=== PATIENT | female | born 1950 | race Caucasian/White ===

== ENCOUNTER 2020-11-09 11:15 | Inpatient (IN) | payer MEDICARE ==
[2020-11-09 12:27] LABS: Basophils # (A) 0.1 k/uL (0-0.2); Basophils % (A) 0 %; Eosinophils # (A) 0.1 k/uL (0-0.7); Eosinophils % (A) 0 %; HCT 39.1 % (34.0-46.0); HGB 12.7 gm/dL (11.4-16.0); Lymphocytes # (A) 1.2 k/uL (1.0-4.8); Lymphocytes % (A) 7 %; MCH 29.9 pg (25.0-35.0); MCHC 32.5 g/dL (31.0-37.0); Mean Platelet Volume 9.2; Monocytes % (A) 6 %; Neutrophils % (A) 84 %; Platelet Count 370 k/uL (150-450); RBC 4.25 m/uL (3.80-5.40); RDW 15.2 % (11.5-15.5); WBC 15.6 k/uL (3.8-10.6)
--- NOTE | 2020-11-09 12:40 | XR ---
EXAMINATION TYPE: XR chest 2V DATE OF EXAM: 11/09/2020 COMPARISON: NONE HISTORY: Extremity weakness and shortness of breath TECHNIQUE: Frontal and lateral views of the chest are obtained. FINDINGS: Mild cardiomegaly is present. Scattered calcified nodules and/or benign granulomas right u pper lung extending towards the hilum. On lateral view there is best seen retrocardiac opacity presum ed left lower lobe atelectasis and/or infiltrate. No pleural effusion or pneumothorax seen bilateral ly. The osseous structures are intact. IMPRESSION: Cardiomegaly with retrocardiac acute infiltrate and/or atelectasis suspected. Correlate clinically.
[2020-11-09 12:41] LABS: Albumin 3.6 g/dL (3.5-5.0); Calcium 9.3 mg/dL (8.4-10.2); Magnesium 1.8 mg/dL (1.6-2.3); Potassium 4.5 mmol/L (3.5-5.1); Total Bilirubin 1.4 mg/dL (0.2-1.3); Total Protein 7.2 g/dL (6.3-8.2)
--- NOTE | 2020-11-09 12:42 | ED ---
General Adult HPI - General Chief complaint: Extremity Problem,Nontraumatic Stated complaint: Weakness Time Seen by Provider: 11/09/20 11:56 Source: patient, RN notes reviewed, old records reviewed Mode of arrival: EMS - History of Present Illness Initial comments: 70-year-old female who presents for evaluation of bilateral leg swelling and pain. Patient has been unable to ambulate secondary to pain and swelling. She does have a history of chronic kidney disease and fluid retention. She had a dosage change to her medication in the late spring. She has no cough, no fever, no chest pain or dyspnea. No abdominal pain nausea vomiting. She states she has had a reduction in urine output recently. - Related Data Home Medications Medication Instructions Recorded Confirmed Atorvastatin [Lipitor] 40 mg PO HS 05/31/14 11/09/20 Glimepiride [Amaryl] 2 mg PO BID 05/31/14 11/09/20 Insulin Glargine [Lantus] 30 unit SQ DAILY 05/31/14 11/09/20 Aspirin EC [Ecotrin Low Dose] 81 mg PO DAILY 11/09/20 11/09/20 Cholecalciferol [Vitamin D3 (25 50 mcg PO DAILY 11/09/20 11/09/20 Mcg = 1000 Iu)] Cinnamon Bark [Cinnamon] 1,000 mg PO DAILY 11/09/20 11/09/20 Furosemide [Lasix] 20 mg PO DAILY 11/09/20 11/09/20 Levothyroxine Sodium [Synthroid] 125 mcg PO DAILY 11/09/20 11/09/20 Lisinopril-Hctz 20-25 mg 1 tab PO DAILY 11/09/20 11/09/20 [Zestoretic 20-25] Metoprolol Succinate [Toprol XL] 50 mg PO DAILY 11/09/20 11/09/20 Potassium Chloride [Klor-Con M15] 15 meq PO DAILY 11/09/20 11/09/20 Semaglutide [Ozempic] 0.25 mg SQ TU 11/09/20 11/09/20 Ubidecarenone [Co Q-10] 200 mg PO DAILY 11/09/20 11/09/20 metFORMIN HCL [Glucophage] 500 mg PO BID 11/09/20 11/09/20 Allergies Allergy/AdvReac Type Severity Reaction Status Date / Time No Known Allergies Allergy Verified 11/09/20 13:17 Review of Systems ROS Statement: Those systems with pertinent positive or pertinent negative responses have been documented in the HPI. ROS Other: All systems not noted in ROS Statement are negative. Past Medical History Past Medical History: Cancer, COPD, Diabetes Mellitus, Hypertension Additional Past Medical History / Comment(s): uterine History of Any Multi-Drug Resistant Organisms: None Reported Past Surgical History: Hysterectomy Past Psychological History: No Psychological Hx Reported Past Alcohol Use History: None Reported Past Drug Use History: None Reported General Exam General appearance: alert, in no apparent distress Head exam: Present: atraumatic, normocephalic Eye exam: Present: normal appearance, PERRL Neck exam: Present: normal inspection. Absent: tenderness Respiratory exam: Present: normal lung sounds bilaterally. Absent: respiratory distress, wheezes, rales Cardiovascular Exam: Present: regular rate, normal rhythm GI/Abdominal exam: Present: soft. Absent: distended, tenderness Extremities exam: Present: pedal edema Neurological exam: Present: alert, oriented X3, CN II-XII intact. Absent: motor sensory deficit Psychiatric exam: Present: normal affect, normal mood Skin exam: Present: warm, dry, intact Course Vital Signs 11/09/20 11/09/20 11:29 13:56 Temperature 98.7 F Pulse Rate 75 70 Respiratory 16 18 Rate Blood Pressure 117/69 139/53 O2 Sat by Pulse 98 99 Oximetry EKG Findings - EKG Comments: EKG Findings:: EKG: Normal sinus rhythm rate of 75, AL interval 140, QRS dur ation 78, QTC 435, T-wave inversion in the precordial leads, no ST segment elevation. Medical Decision Making - Medical Decision Making 70-year-old female presenting with lower extremity edema, pain, unable to ambulate. Patient is afebrile with stable vitals. Workup is initiated, she has a EKG showing sinus rhythm without ST segment elevation or ischemic change. Chest x-ray shows concern for atelectasis versus pneumonia. She has an elevated white blood cell count 15.6. Stable creatinine, elevated blood sugar. Her troponin and BNP are normal. I suspect this is just peripheral dependent edema rather than heart failure. Given the pneumonia with elevated white blood cell count she is initiated on antibiotics. She will be admitted for further evaluation and treatment. - Lab Data Result diagrams: 11/09/20 11:26 11/09/20 11:26 Lab Results 11/09/20 11/09/20 11/09/20 Range/Units 11:26 11:26 11:26 WBC 15.6 H (3.8-10.6) k/uL RBC 4.25 (3.80-5.40) m/uL Hgb 12.7 (11.4-16.0) gm/dL Hct 39.1 (34.0-46.0) % MCV 92.0 (80.0-100.0) fL MCH 29.9 (25.0-35.0) pg MCHC 32.5 (31.0-37.0) g/dL RDW 15.2 (11.5-15.5) % Plt Count 370 (150-450) k/uL MPV 9.2 Neutrophils % 84 % Lymphocytes % 7 % Monocytes % 6 % Eosinophils % 0 % Basophils % 0 % Neutrophils # 13.0 H (1.3-7.7) k/uL Lymphocytes # 1.2 (1.0-4.8) k/uL Monocytes # 1.0 (0-1.0) k/uL Eosinophils # 0.1 (0-0.7) k/uL Basophils # 0.1 (0-0.2) k/uL PT 10.0 (9.0-12.0) sec INR 0.9 (<1.2) APTT 22.6 (22.0-30.0) sec Sodium 137 (137-145) mmol/L Potassium 4.5 (3.5-5.1) mmol/L Chloride 100 (98-107) mmol/L Carbon Dioxide 25 (22-30) mmol/L Anion Gap 12 mmol/L BUN 24 H (7-17) mg/dL Creatinine 1.29 H (0.52-1.04) mg/dL Est GFR (CKD-EPI)AfAm 48 (>60 ml/min/1.73 sqM) Est GFR (CKD-EPI)NonAf 42 (>60 ml/min/1.73 sqM) Glucose 252 H (74-99) mg/dL Calcium 9.3 (8.4-10.2) mg/dL Magnesium 1.8 (1.6-2.3) mg/dL Total Bilirubin 1.4 H (0.2-1.3) mg/dL AST 34 (14-36) U/L ALT 21 (4-34) U/L Alkaline Phosphatase 112 (38-126) U/L Troponin I (0.000-0.034) ng/mL NT-Pro-B Natriuret Pep pg/mL Total Protein 7.2 (6.3-8.2) g/dL Albumin 3.6 (3.5-5.0) g/dL 11/09/20 11/09/20 Range/Units 11:26 11:26 WBC (3.8-10.6) k/uL RBC (3.80-5.40) m/uL Hgb (11.4-16.0) gm/dL Hct (34.0-46.0) % MCV (80.0-100.0) fL MCH (25.0-35.0) pg MCHC (31.0-37.0) g/dL RDW (11.5-15.5) % Plt Count (150-450) k/uL MPV Neutrophils % % Lymphocytes % % Monocytes % % Eosinophils % % Basophils % % Neutrophils # (1.3-7.7) k/uL Lymphocytes # (1.0-4.8) k/uL Monocytes # (0-1.0) k/uL Eosinophils # (0-0.7) k/uL Basophils # (0-0.2) k/uL PT (9.0-12.0) sec INR (<1.2) APTT (22.0-30.0) sec Sodium (137-145) mmol/L Potassium (3.5-5.1) mmol/L Chloride (98-107) mmol/L Carbon Dioxide (22-30) mmol/L Anion Gap mmol/L BUN (7-17) mg/dL Creatinine (0.52-1.04) mg/dL Est GFR (CKD-EPI)AfAm (>60 ml/min/1.73 sqM) Est GFR (CKD-EPI)NonAf (>60 ml/min/1.73 sqM) Glucose (74-99) mg/dL Calcium (8.4-10.2) mg/dL Magnesium (1.6-2.3) mg/dL Total Bilirubin (0.2-1.3) mg/dL AST (14-36) U/L ALT (4-34) U/L Alkaline Phosphatase (38-126) U/L Troponin I <0.012 (0.000-0.034) ng/mL NT-Pro-B Natriuret Pep 548 pg/mL Total Protein (6.3-8.2) g/dL Albumin (3.5-5.0) g/dL Disposition Clinical Impression: Peripheral edema, Pneumonia, Leukocytosis Disposition: ADMITTED IP TO THIS HOSP Condition: Stable Is patient prescribed a controlled substance at d/c from ED?: No Referrals: Cinthia Valverde MD [Primary Care Provider] - 1-2 days Time of Disposition: 14:18 Decision to Admit Reason: Admit from EC Decision Date: 11/09/20 Decision Time: 14:18
[2020-11-09 12:53] LABS: INR 0.9 (<1.2); Partial Thromboplastin Time 22.6 sec (22.0-30.0)
[2020-11-09] MEDS ORDERED: cefTRIAXone IN SWFI 1,000 MG/10 ML SYRINGE IVP STA (13:45)
[2020-11-09] MEDS ORDERED: FUROSEMIDE 10 MG/ML 4 ML VIAL IV STA (13:45)
[2020-11-09] MEDS ORDERED: AZITHROMYCIN 500 MG in SODIUM CHLORIDE 0.9% 250 ML IVPB STA (13:45)
[2020-11-09] MEDS ORDERED: NALOXONE 0.4 MG/ML 1 ML VIAL IV PRN (14:14)
[2020-11-09] MEDS ORDERED: ACETAMINOPHEN TAB 325 MG TAB PO PRN (14:14)
[2020-11-09] MEDS ORDERED: NON FORMULARY DRUG (Semaglutide [Ozempic] 0.25 MG/0.2 ML Pen.Injctr) SQ SCH (17:45)
--- NOTE | 2020-11-09 19:21 | XR ---
EXAMINATION TYPE: XR ankle complete bilateral DATE OF EXAM: 11/09/2020 COMPARISON: NONE HISTORY: Ankle pain TECHNIQUE: 3 views each ankle FINDINGS: There is bilateral soft tissue swelling around the ankle joints. Left and right ankle morti se appear intact. There is bilateral plantar and Achilles calcaneal spur formation. There is no evide nce of a fracture. Joint spaces are fairly normal. IMPRESSION: Soft tissue swelling. Bilateral calcaneal spurring. No fracture seen. No sign of inflamma tory arthritis. No erosions seen.
[2020-11-09] MEDS: COLCHICINE 0.6 MG EACH PO SCH (21:54)
[2020-11-09] MEDS: ATORVASTATIN 40 MG TAB PO SCH (21:55)
[2020-11-09] MEDS: metFORMIN 500 MG TAB PO SCH (21:56)
[2020-11-09] MEDS: GLIMEPIRIDE 2 MG TAB PO SCH (22:20)
[2020-11-10] MEDS: metFORMIN 500 MG TAB PO SCH ×2 (06:09→17:31)
[2020-11-10] MEDS: LEVOTHYROXINE 125 MCG TAB PO SCH (06:09)
[2020-11-10] MEDS: METOPROLOL SUCCINATE (ER) 50 MG TAB.ER.24H PO SCH (08:48)
[2020-11-10] MEDS: lisinopriL 20 MG TAB PO SCH (08:48)
[2020-11-10] MEDS: COLCHICINE 0.6 MG EACH PO SCH (08:48)
[2020-11-10] MEDS: FUROSEMIDE 20 MG TAB PO SCH (08:48)
[2020-11-10] MEDS: ASPIRIN 81 MG PO SCH (08:48)
[2020-11-10] MEDS: CHOLECALCIFEROL 25 MCG (1000 IU) TABLET PO SCH (08:48)
[2020-11-10] MEDS: GLIMEPIRIDE 2 MG TAB PO SCH ×2 (08:48→21:26)
[2020-11-10] MEDS: INSULIN DETEMIR (LEVEMIR) 100 UNIT/ML SYR SQ SCH (08:49)
[2020-11-10] MEDS: POTASSIUM CHLORIDE ER 10 MEQ TAB.ER.PRT PO SCH (08:49)
[2020-11-10] MEDS ORDERED: LISINOPRIL-HCTZ 20-25 MG 1 EACH TAB PO SCH (09:00)
[2020-11-10 11:48] LABS: Basophils # (A) 0.08 X 10*3/uL (0.00-0.10); Basophils % (A) 0.7 %; Eosinophils # (A) 0.17 X 10*3/uL (0.04-0.35); Eosinophils % (A) 1.4 %; HCT 37.2 % (37.2-46.3); HGB 11.5 g/dL (12.0-15.0); Lymphocytes # (A) 1.72 X 10*3/uL (0.90-5.00); MCH 28.5 pg (27.0-32.0); MCHC 30.9 g/dL (32.0-37.0); MCV 92.1 fL (80.0-97.0); Mean Platelet Volume 11.2 fL (9.5-12.2); Monocytes # (A) 1.09 X 10*3/uL (0.20-1.00); Monocytes % (A) 8.9 %; Neutrophils # (A) 9.18 X 10*3/uL (1.80-7.70); Neutrophils % (A) 74.5 %; Platelet Count 373 X 10*3/uL (140-440); RBC 4.04 X 10*6/uL (4.10-5.20); RDW 15.9 % (11.5-14.5)
[2020-11-10 12:01] LABS: African American GFR (CKD) 37.2 (60.0-200.0); Anion Gap 13.2 mmol/L (4.00-12.00); BUN/Creat Ratio 18.13 Ratio (12.00-20.00); Calcium 9.1 mg/dL (8.7-10.3); Carbon Dioxide 25.8 mmol/L (21.6-31.8); Non-African American GFR(CKD) 32.1 (60.0-200.0); Potassium 4.1 mmol/L (3.5-5.5)
[2020-11-10 12:30] LABS: Appearance,Urine Cloudy (Clear); Bacteria,Urine Few /hpf; Bilirubin,Urine Negative (Negative); Blood,Urine Small (Negative); Color,Urine Yellow; Glucose,Urine (UA) Negative (Negative); Hyaline Casts,Urine 5 /lpf (0-2); Ketones,Urine Negative (Negative); Leukocyte Esterase,Urine Large (Negative); Mucus,Urine Rare /hpf; Nitrite,Urine Negative (Negative); PH, Urine 5.5 (5.0-8.0); Protein,Urine 1+ (Negative); RBC,Urine 10 /hpf (0-5); Specific Gravity,Urine 1.019 (1.001-1.035); Squamous Epithelial Cell,Urine 3 /hpf (0-4); Urobilinogen,Urine <2.0 mg/dL (<2.0); WBC,Urine 142 /hpf (0-5)
[2020-11-10] MEDS: SODIUM CHLORIDE 0.9% 1,000 ML IV SCH ×2 (13:39→21:27)
[2020-11-10] MEDS ORDERED: AZITHROMYCIN 500 MG in SODIUM CHLORIDE 0.9% 250 ML IVPB SCH (14:00)
--- NOTE | 2020-11-10 16:40 | P.HPIM ---
History of Present Illness H&P Date: 11/09/20 Chief Complaint: Difficulties ambulating if ambulating, ankle pain Is a 70-year-old pleasant female, well-known to my practice, with known history of diabetes mellitus type 2, leg edema, CK D disease, has unilateral kidney, was admitted in the emergency room secondary to difficulties ambulating. Patient anxious that her leg is stiff, patient denies any trauma no falls, no new medication changes from our clinic, no history of DVT or PE in the past. Patient has leg edema, she was noted to have no claudication, no cyanosis. She has a rash in the anterior tibial region, which is chronic and has not changed. In the emergency room, she was some leukocytosis, however chest x-ray noted to have some infiltrate, however patient does not have a cough no nausea no vomiting, no dyspepsia, no aspiration. Patient has foul-smelling urine, for which we have requested a urinalysis for this, urinalysis or culture pending. Patient is on IV Rocephin, and Zithromax for empiric treatment, this needs to be decided Review of Systems Constitutional: Reports as per HPI, Reports weakness, Denies anorexia, Denies chills, Denies chronic headaches, Denies chronic pain, Denies daytime sleepiness, Denies fatigue, Denies fever, Denies lethargy, Denies malaise, Denies night sweats, Denies poor appetite, Denies sweats, Denies weight gain, De nies weight loss Ears, nose, mouth and throat: Denies headache, Denies nasal congestion, Denies vertigo Cardiovascular: Reports as per HPI, Reports chest pain, Reports syncope Respiratory: Reports as per HPI, Denies cough, Denies cough with sputum, Denies dyspnea, Denies excessive sputum, Denies home oxygen, Denies pain on inspiration Gastrointestinal: Reports as per HPI, Denies bloating, Denies constipation, Denies diarrhea, Denies dyspepsia, Denies indigestion Genitourinary: Reports as per HPI Menstruation: Reports as per HPI Musculoskeletal: Reports as per HPI, Reports frequent falls, Reports gait dysfunction, Reports limitation of motion, Reports muscle weakness, Denies neck pain Integumentary: Reports as per HPI Neurological: Reports as per HPI Psychiatric: Reports as per HPI Endocrine: Reports as per HPI Hematologic/Lymphatic: Reports as per HPI Allergic/Immunologic: Reports as per HPI Past Medical History Past Medical History: Cancer, COPD, Diabetes Mellitus, Hypertension Additional Past Medical History / Comment(s): uterine History of Any Multi-Drug Resistant Organisms: None Reported Past Surgical History: Hysterectomy Past Psychological History: No Psychological Hx Reported Past Alcohol Use History: None Reported Past Drug Use History: None Reported - Past Family History Father Family Medical History: No Reported History Medications and Allergies Home Medications Medication Instructions Recorded Confirmed Type Atorvastatin [Lipitor] 40 mg PO HS 05/31/14 11/09/20 History Glimepiride [Amaryl] 2 mg PO BID 05/31/14 11/09/20 History Insulin Glargine [Lantus] 30 unit SQ DAILY 05/31/14 11/09/20 History Aspirin EC [Ecotrin Low Dose] 81 mg PO DAILY 11/09/20 11/09/20 History Cholecalciferol [Vitamin D3 (25 50 mcg PO DAILY 11/09/20 11/09/20 History Mcg = 1000 Iu)] Cinnamon Bark [Cinnamon] 1,000 mg PO DAILY 11/09/20 11/09/20 History Furosemide [Lasix] 20 mg PO DAILY 11/09/20 11/09/20 History Levothyroxine Sodium [Synthroid] 125 mcg PO DAILY 11/09/20 11/09/20 History Lisinopril-Hctz 20-25 mg 1 tab PO DAILY 11/09/20 11/09/20 History [Zestoretic 20-25] Metoprolol Succinate [Toprol XL] 50 mg PO DAILY 11/09/20 11/09/20 History Potassium Chloride [Klor-Con M15] 15 meq PO DAILY 11/09/20 11/09/20 History Semaglutide [Ozempic] 0.25 mg SQ TU 11/09/20 11/09/20 History Ubidecarenone [Co Q-10] 200 mg PO DAILY 11/09/20 11/09/20 History metFORMIN HCL [Glucophage] 500 mg PO BID 11/09/20 11/09/20 History Allergies Allergy/AdvReac Type Severity Reaction Status Date / Time No Known Allergies Allergy Verified 11/09/20 13:17 Physical Exam Vitals: Vital Signs Temp Pulse Resp BP Pulse Ox 11/09/20 13:56 70 18 139/53 99 11/09/20 11:29 98.7 F 75 16 117/69 98 Intake and Output 11/09/20 11/09/20 11/09/20 06:59 14:59 22:59 Other: Weight 125.645 kg - Constitutional General appearance: cooperative, no acute distress, obese - EENT Eyes: EOMI, PERRLA ENT: NA/AT, normal oropharynx - Respiratory Respiratory: bilateral: CTA, negative: diminished, dullness - Cardiovascular Rhythm: regular Heart sounds: normal: S1, S2 Abnormal Heart Sounds: no systolic murmur, no diastolic murmur, no rub, no S3 Gallop, no S4 Gallop, no click, no other - Gastrointestinal General gastrointestinal: normal bowel sounds, soft - Integumentary Integumentary: decreased turgor, normal - Neurologic Neurologic: CNII-XII intact - Musculoskeletal Musculoskeletal: generalized weakness, strength equal bilaterally - Psychiatric Psychiatric: A&O x's 3, appropriate affect Results CBC & Chem 7: 11/10/20 08:01 11/10/20 08:01 Labs: Abnormal Lab Results - Last 24 Hours (Table) 11/09/20 11/09/20 Range/Units 11:26 11:26 WBC 15.6 H (3.8-10.6) k/uL Neutrophils # 13.0 H (1.3-7.7) k/uL BUN 24 H (7-17) mg/dL Creatinine 1.29 H (0.52-1.04) mg/dL Glucose 252 H (74-99) mg/dL Total Bilirubin 1.4 H (0.2-1.3) mg/dL Assessment and Plan Plan: 1. Sepsis, primary source unknown, check for UA, patient has foul-smelling urine, and weakness. Patient would start start empiric on antibiotic, Rocephin and Zithromax secondary to infiltrate the skin and chest x-ray, however patient's asymptomatic to this. Blood cultures has been sent 1. Difficulty of ambulating bilateral ankles, we would evaluate with gouty arthropathy, other crystal deposits, start on colchicine 0.6 mg daily, unable to do NSAID at this time secondary to unilateral kidney, and elevation of creatinine. Patient would need x-rays of the ankle, there is no trauma involved at this time, start hydrochlorothiazide 3. Hypertension, we will change lisinopril HCTZ to lisinopril 20 mg daily, continue Lasix 20 mg daily 4. Diabetes mellitus type 2, on glimepiride 2 mg twice a day, Lantus 30 mg daily 5. Hyperlipidemia with Lipitor 40 mg daily hypothyroidism, levothyroxine 125 g daily 6 CK D stage III, creatinine of 1.29 GFR 48, unilateral kidney present only, patient will be monitored closely, and no nephrotoxin, avoid hypotension 7. GI prophylaxis and DVT prophylaxis
--- NOTE | 2020-11-10 16:43 | P.PN ---
Subjective Progress Note Date: 11/10/20 Is a 70-year-old pleasant female, well-known to my practice, with known history of diabetes mellitus type 2, leg edema, CK D disease, has unilateral kidney, was admitted in the emergency room secondary to difficulties ambulating. Patient anxious that her leg is stiff, patient denies any trauma no falls, no new medication changes from our clinic, no history of DVT or PE in the past. Patient has leg edema, she was noted to have no claudication, no cyanosis. She has a rash in the anterior tibial region, which is chronic and has not changed. In the emergency room, she was some leukocytosis, however chest x-ray noted to have some infiltrate, however patient does not have a cough no nausea no vomiti ng, no dyspepsia, no aspiration. Patient has foul-smelling urine, for which we have requested a urinalysis for this, urinalysis or culture pending. Patient is on IV Rocephin, and Zithromax for empiric treatment, this needs to be decided 11/10: Patient has ambulated to the bathroom, patient's was seen by PT OT, has urinary tract infection based on urinalysis, with pyuria, and foul-smelling odor , has dark urine today, IV fluids started, at 75-100 mL an hour, creatinine is slightly worse today, patient is on Rocephin urine tract infection as well as Zithromax, we'll going to discontinue Zithromax at this time, lack of clinical symptoms on pneumonia. Blood cultures are currently pending, uric acid is pending, patient is to continue on colchicine at this time no fever no chills no diarrhea, Objective - Vital Signs Vital signs: Vital Signs Temp 98.5 F 11/10/20 13:15 Pulse 64 11/10/20 13:15 Resp 16 11/10/20 13:15 BP 131/61 11/10/20 13:15 Pulse Ox 97 11/10/20 13:15 Intake & Output 11/09/20 11/10/20 11/10/20 18:59 06:59 18:59 Output Total 350 Balance -350 Weight 125.645 kg 125.645 kg Output: Urine 350 Other: Voiding Method External Catheter # Voids 1 - Labs CBC & Chem 7: 11/10/20 08:01 11/10/20 08:01 Labs: Abnormal Lab Results - Last 24 Hours (Table) 11/09/20 11/10/20 11/10/20 Range/Units 18:29 08:01 08:01 WBC 12.30 H (4.50-10.00) X 10*3/uL RBC 4.04 L (4.10-5.20) X 10*6/uL Hgb 11.5 L (12.0-15.0) g/dL MCHC 30.9 L (32.0-37.0) g/dL RDW 15.9 H (11.5-14.5) % Immature Gran # 0.06 H (0.00-0.04) X 10*3/uL Neutrophils # 9.18 H (1.80-7.70) X 10*3/uL Monocytes # 1.09 H (0.20-1.00) X 10*3/uL D-Dimer 1.08 H (<0.60) mg/L FEU Anion Gap 13.20 H (4.00-12.00) mmol/L BUN 29.0 H (9.0-27.0) mg/dL Creatinine 1.6 H (0.6-1.5) mg/dL Est GFR (CKD-EPI)AfAm 37.2 L (60.0-200.0) Est GFR (CKD-EPI)NonAf 32.1 L (60.0-200.0) Glucose 115 H (70-110) mg/dL Urine Appearance (Clear) Urine Protein (Negative) Urine Blood (Negative) Ur Leukocyte Esterase (Negative) Urine RBC (0-5) /hpf Urine WBC (0-5) /hpf Urine Bacteria (None) /hpf Hyaline Casts (0-2) /lpf Urine Mucus (None) /hpf 11/10/20 Range/Units 10:45 WBC (4.50-10.00) X 10*3/uL RBC (4.10-5.20) X 10*6/uL Hgb (12.0-15.0) g/dL MCHC (32.0-37.0) g/dL RDW (11.5-14.5) % Immature Gran # (0.00-0.04) X 10*3/uL Neutrophils # (1.80-7.70) X 10*3/uL Monocytes # (0.20-1.00) X 10*3/uL D-Dimer (<0.60) mg/L FEU Anion Gap (4.00-12.00) mmol/L BUN (9.0-27.0) mg/dL Creatinine (0.6-1.5) mg/dL Est GFR (CKD-EPI)AfAm (60.0-200.0) Est GFR (CKD-EPI)NonAf (60.0-200.0) Glucose (70-110) mg/dL Urine Appearance Cloudy H (Clear) Urine Protein 1+ H (Negative) Urine Blood Small H (Negative) Ur Leukocyte Esterase Large H (Negative) Urine RBC 10 H (0-5) /hpf Urine WBC 142 H (0-5) /hpf Urine Bacteria Few H (None) /hpf Hyaline Casts 5 H (0-2) /lpf Urine Mucus Rare H (None) /hpf Microbiology - Last 24 Hours (Table) 11/09/20 14:29 Blood Culture - Preliminary Blood No Growth after 24 hours 11/09/20 14:29 Blood Culture - Preliminary Blood No Growth after 24 hours Assessment and Plan Plan: 1. Sepsis, primary source unknown, check for UA, patient has foul-smelling urine, and weakness. Patient would start start empiric on antibiotic, Rocephin and Zithromax secondary to infiltrate the skin and chest x-ray, however patient's asymptomatic to this. Blood cultures has been sent 2. Acute urinary tract infection, check for kidney ultrasound, has to rule out kidney, evaluate for pyelonephritis including abscess, WBC is monitored closely, cultures are pending, IV Rocephin 2 Difficulty of ambulating bilateral ankles, we would evaluate with gouty arthropathy, other crystal deposits, start on colchicine 0.6 mg daily, unable to do NSAID at this time secondary to unilateral kidney, and elevation of creatinine. Patient would need x-rays of the ankle, there is no trauma involved at this time, start hydrochlorothiazide 3. Hypertension, we will change lisinopril HCTZ to lisinopril 20 mg daily, continue Lasix 20 mg daily 4. Diabetes mellitus type 2, on glimepiride 2 mg twice a day, Lantus 30 mg daily 5. Hyperlipidemia with Lipitor 40 mg daily hypothyroidism, levothyroxine 125 g daily 6 CK D stage III, creatinine of 1.29 GFR 48, unilateral kidney present only, patient will be monitored closely, and no nephrotoxin, avoid hypotension 7. GI prophylaxis and DVT prophylaxis
[2020-11-10 18:06] LABS: Procalcitonin 0.24 ng/mL (0.02-0.09)
--- NOTE | 2020-11-10 18:09 | US ---
EXAMINATION TYPE: US kidneys/renal and bladder DATE OF EXAM: 11/10/2020 COMPARISON: NONE CLINICAL HISTORY: hyrdonephrosis uti. EXAM MEASUREMENTS: Right Kidney: 10.3 x 3.8 x 4.6 cm Left Kidney: 12.6 x 4.8 x 6.2 cm Technically difficult exam performed portably with patient in recliner chair. Right Kidney: No hydronephrosis or masses seen Left Kidney: No hydronephrosis or masses seen Bladder: not well seen, patient has catherter IMPRESSION: No evidence of renal mass or obstruction. Limited exam.
[2020-11-10 19:05] LABS: Hemoglobin A1C 7.7 % (4.0-6.0)
[2020-11-10] MEDS: ATORVASTATIN 40 MG TAB PO SCH (21:26)
[2020-11-11] MEDS: LEVOTHYROXINE 125 MCG TAB PO SCH (05:57)
[2020-11-11 07:21] LABS: Glucose,Whole Blood 96 mg/dL (75-99)
[2020-11-11] MEDS: POTASSIUM CHLORIDE ER 10 MEQ TAB.ER.PRT PO SCH (07:51)
[2020-11-11] MEDS: METOPROLOL SUCCINATE (ER) 50 MG TAB.ER.24H PO SCH (07:51)
[2020-11-11] MEDS: metFORMIN 500 MG TAB PO SCH ×2 (07:51→17:13)
[2020-11-11] MEDS: ASPIRIN 81 MG PO SCH (07:51)
[2020-11-11] MEDS: FUROSEMIDE 20 MG TAB PO SCH (07:52)
[2020-11-11] MEDS: CHOLECALCIFEROL 25 MCG (1000 IU) TABLET PO SCH (07:52)
[2020-11-11] MEDS: lisinopriL 20 MG TAB PO SCH (07:52)
[2020-11-11] MEDS: COLCHICINE 0.6 MG EACH PO SCH (07:52)
[2020-11-11] MEDS: INSULIN DETEMIR (LEVEMIR) 100 UNIT/ML SYR SQ SCH (07:53)
[2020-11-11] MEDS: GLIMEPIRIDE 2 MG TAB PO SCH ×2 (08:48→20:48)
[2020-11-11 11:15] LABS: Basophils # (A) 0.08 X 10*3/uL (0.00-0.10); Basophils % (A) 0.7 %; Eosinophils # (A) 0.42 X 10*3/uL (0.04-0.35); Eosinophils % (A) 3.9 %; HCT 34.9 % (37.2-46.3); HGB 10.8 g/dL (12.0-15.0); Lymphocytes # (A) 1.82 X 10*3/uL (0.90-5.00); Lymphocytes % (A) 17.1 %; MCH 28.4 pg (27.0-32.0); MCHC 30.9 g/dL (32.0-37.0); MCV 91.8 fL (80.0-97.0); Mean Platelet Volume 11.3 fL (9.5-12.2); Monocytes # (A) 0.98 X 10*3/uL (0.20-1.00); Monocytes % (A) 9.2 %; Neutrophils # (A) 7.34 X 10*3/uL (1.80-7.70); Neutrophils % (A) 68.8 %; Platelet Count 374 X 10*3/uL (140-440); RDW 15.7 % (11.5-14.5); WBC 10.67 X 10*3/uL (4.50-10.00)
--- NOTE | 2020-11-11 12:20 | P.PN ---
Subjective Progress Note Date: 11/11/20 Is a 70-year-old pleasant female, well-known to my practice, with known history of diabetes mellitus type 2, leg edema, CK D disease, has unilateral kidney, was admitted in the emergency room secondary to difficulties ambulating. Patient anxious that her leg is stiff, patient denies any trauma no falls, no new medication changes from our clinic, no history of DVT or PE in the past. Patient has leg edema, she was noted to have no claudication, no cyanosis. She has a rash in the anterior tibial region, which is chronic and has not changed. In the emergency room, she was some leukocytosis, however chest x-ray noted to have some infiltrate, however patient does not have a cough no nausea no vomiti ng, no dyspepsia, no aspiration. Patient has foul-smelling urine, for which we have requested a urinalysis for this, urinalysis or culture pending. Patient is on IV Rocephin, and Zithromax for empiric treatment, this needs to be decided 11/10: Patient has ambulated to the bathroom, patient's was seen by PT OT, has urinary tract infection based on urinalysis, with pyuria, and foul-smelling odor , has dark urine today, IV fluids started, at 75-100 mL an hour, creatinine is slightly worse today, patient is on Rocephin urine tract infection as well as Zithromax, we'll going to discontinue Zithromax at this time, lack of clinical symptoms on pneumonia. Blood cultures are currently pending, uric acid is pending, patient is to continue on colchicine at this time no fever no chills no diarrhea, 11/11: Patient is doing much better today, has ambulated through the hallway, however the ankle stiff, novocaine. Patient's uric acids elevated, allopurinol 300 mg daily was started, patient has no changes in appetite, appetite seems to be much better also. No shortness of breath no cough no fever, she still has the urethral catheter, urine cultures are currently pending, most likely to be discharged in the next 24 hours, pending cultures. No fever this time, on IV Rocephin Objective - Vital Signs Vital signs: Vital Signs Temp 98.7 F 11/11/20 08:00 Pulse 72 11/11/20 08:00 Resp 18 11/11/20 08:00 BP 125/78 11/11/20 08:00 Pulse Ox 94 L 11/11/20 08:00 Intake & Output 11/10/20 11/11/20 11/11/20 18:59 06:59 18:59 Output Total 350 300 Balance -350 -300 Output: Urine 350 300 Other: Voiding Method External Catheter External Catheter External Catheter # Voids 1 - Constitutional General appearance: Present: cooperative, obese - EENT Eyes: Present: EOMI, PERRLA, dentition normal - Respiratory Respiratory: bilateral: CTA, negative: diminished, dullness, rhonchi - Cardiovascular Rhythm: regular Abnormal Heart Sounds: Absent: systolic murmur, diastolic murmur, rub, S3 Gallop , S4 Gallop, click, other - Gastrointestinal General gastrointestinal: Present: normal bowel sounds, soft - Neurologic Neurologic: Present: CNII-XII intact - Musculoskeletal Musculoskeletal: Present: gait normal, strength equal bilaterally - Labs CBC & Chem 7: 11/11/20 06:30 11/10/20 08:01 Labs: Abnormal Lab Results - Last 24 Hours (Table) 11/09/20 11/10/20 11/10/20 Range/Units 11:26 08:01 08:01 WBC (4.50-10.00) X 10*3/uL RBC (4.10-5.20) X 10*6/uL Hgb (12.0-15.0) g/dL Hct (37.2-46.3) % MCHC (32.0-37.0) g/dL RDW (11.5-14.5) % Eosinophils # (0.04-0.35) X 10*3/uL Hemoglobin A1c 7.7 H (4.0-6.0) % Uric Acid 10.9 H (2.9-7.7) mg/dL Procalcitonin 0.24 H (0.02-0.09) ng/mL Urine Appearance (Clear) Urine Protein (Negative) Urine Blood (Negative) Ur Leukocyte Esterase (Negative) Urine RBC (0-5) /hpf Urine WBC (0-5) /hpf Urine Bacteria (None) /hpf Hyaline Casts (0-2) /lpf Urine Mucus (None) /hpf 11/10/20 11/11/20 Range/Units 10:45 06:30 WBC 10.67 H (4.50-10.00) X 10*3/uL RBC 3.80 L (4.10-5.20) X 10*6/uL Hgb 10.8 L (12.0-15.0) g/dL Hct 34.9 L (37.2-46.3) % MCHC 30.9 L (32.0-37.0) g/dL RDW 15.7 H (11.5-14.5) % Eosinophils # 0.42 H (0.04-0.35) X 10*3/uL Hemoglobin A1c (4.0-6.0) % Uric Acid (2.9-7.7) mg/dL Procalcitonin (0.02-0.09) ng/mL Urine Appearance Cloudy H (Clear) Urine Protein 1+ H (Negative) Urine Blood Small H (Negative) Ur Leukocyte Esterase Large H (Negative) Urine RBC 10 H (0-5) /hpf Urine WBC 142 H (0-5) /hpf Urine Bacteria Few H (None) /hpf Hyaline Casts 5 H (0-2) /lpf Urine Mucus Rare H (None) /hpf Microbiology - Last 24 Hours (Table) 11/10/20 10:45 Urine Culture - Preliminary Urine,Voided 11/09/20 14:29 Blood Culture - Preliminary Blood No Growth after 24 hours 11/09/20 14:29 Blood Culture - Preliminary Blood No Growth after 24 hours Assessment and Plan Plan: 1. Sepsis, primary source unknown, check for UA, patient has foul-smelling urine, and weakness. Patient would start start empiric on antibiotic, Rocephin and Zithromax secondary to infiltrate the skin and chest x-ray, however patient's asymptomatic to this. Blood cultures has been sent 2. Acute urinary tract infection, check for kidney ultrasound, has to rule out kidney, evaluate for pyelonephritis including abscess, WBC is monitored closely, cultures are pending, IV Rocephin 2 Difficulty of ambulating bilateral ankles, we would evaluate with gouty arthropathy, other crystal deposits, start on colchicine 0.6 mg daily, unable to do NSAID at this time secondary to unilateral kidney, and elevation of creatinine. Patient would need x-rays of the ankle, there is no trauma involved at this time, start hydrochlorothiazide 3. Hypertension, we will change lisinopril HCTZ to lisinopril 20 mg daily, continue Lasix 20 mg daily 4. Diabetes mellitus type 2, on glimepiride 2 mg twice a day, Lantus 30 mg daily 5. Hyperlipidemia with Lipitor 40 mg daily hypothyroidism, levothyroxine 125 g daily 6 CK D stage III, creatinine of 1.29 GFR 48, unilateral kidney present only, patient will be monitored closely, and no nephrotoxin, avoid hypotension Hyperuricemia gout, without tophi, start enalapril 10 mg daily, continue colchicine 7. GI prophylaxis and DVT prophylaxis
[2020-11-11 14:23] LABS: African American GFR (CKD) 52.7 (60.0-200.0); Anion Gap 9.3 mmol/L (4.00-12.00); BUN/Creat Ratio 25.83 Ratio (12.00-20.00); Calcium 7.6 mg/dL (8.7-10.3); Carbon Dioxide 24.7 mmol/L (21.6-31.8); Non-African American GFR(CKD) 45.4 (60.0-200.0); Potassium 3.5 mmol/L (3.5-5.5)
[2020-11-11 17:08] LABS: Glucose,Whole Blood 200 mg/dL (75-99)
[2020-11-11] MEDS: allopurinoL 300 MG TAB PO SCH (17:13)
[2020-11-11] MEDS: ATORVASTATIN 40 MG TAB PO SCH (20:48)
[2020-11-11 21:43] LABS: Glucose,Whole Blood 152 mg/dL (75-99)
[2020-11-12] MEDS: LEVOTHYROXINE 125 MCG TAB PO SCH (05:23)
[2020-11-12 07:06] LABS: Glucose,Whole Blood 101 mg/dL (75-99)
[2020-11-12] MEDS: FUROSEMIDE 20 MG TAB PO SCH (07:52)
[2020-11-12] MEDS: POTASSIUM CHLORIDE ER 10 MEQ TAB.ER.PRT PO SCH (07:52)
[2020-11-12] MEDS: METOPROLOL SUCCINATE (ER) 50 MG TAB.ER.24H PO SCH (07:52)
[2020-11-12] MEDS: ASPIRIN 81 MG PO SCH (07:52)
[2020-11-12] MEDS: allopurinoL 300 MG TAB PO SCH (07:53)
[2020-11-12] MEDS: CHOLECALCIFEROL 25 MCG (1000 IU) TABLET PO SCH (07:53)
[2020-11-12] MEDS: lisinopriL 20 MG TAB PO SCH (07:53)
[2020-11-12] MEDS: INSULIN DETEMIR (LEVEMIR) 100 UNIT/ML SYR SQ SCH (07:53)
[2020-11-12] MEDS: metFORMIN 500 MG TAB PO SCH ×2 (07:53→17:10)
[2020-11-12] MEDS: COLCHICINE 0.6 MG EACH PO SCH (07:54)
[2020-11-12] MEDS: GLIMEPIRIDE 2 MG TAB PO SCH ×2 (07:54→21:20)
[2020-11-12 11:54] LABS: Glucose,Whole Blood 189 mg/dL (75-99)
--- NOTE | 2020-11-12 12:36 | P.DS ---
Providers Date of admission: 11/09/20 14:14 Attending physician: Cinthia Valverde Primary care physician: Cinthia Valverde [facility] Course: Is a 70-year-old pleasant female, well-known to my practice, with known history of diabetes mellitus type 2, leg edema, CK D disease, has unilateral kidney, was admitted in the emergency room secondary to difficulties ambulating. Patient anxious that her leg is stiff, patient denies any trauma no falls, no new medication changes from our clinic, no history of DVT or PE in the past. Patient has leg edema, she was noted to have no claudication, no cyanosis. She has a rash in the anterior tibial region, which is chronic and has not changed. In the emergency room, she was some leukocytosis, however chest x-ray noted to have some infiltrate, however patient does not have a cough no nausea no vomiting, no dyspepsia, no aspiration. Patient has foul-smelling urine, for which we have requested a urinalysis for this, urinalysis or culture pending. Patient is on IV Rocephin, and Zithromax for empiric treatment, this needs to be decided 11/10: Patient has ambulated to the bathroom, patient's was seen by PT OT, has urinary tract infection based on urinalysis, with pyuria, and foul-smelling odor, has dark urine today, IV fluids started, at 75-100 mL an hour, creatinine is slightly worse today, patient is on Rocephin urine tract infection as well as Zithromax, we'll going to discontinue Zithromax at this time, lack of clinical symptoms on pneumonia. Blood cultures are currently pending, uric acid is pending, patient is to continue on colchicine at this time no fever no chills no diarrhea, 11/11: Patient is doing much better today, has ambulated through the hallway, however the ankle stiff, . Patient's uric acids elevated, allopurinol 300 mg daily was started, patient has no changes in appetite, appetite seems to be much better also. No shortness of breath no cough no fever, she still has the urethral catheter, urine cultures are currently pending, most likely to be discharged in the next 24 hours, pending cultures. No fever this time, on IV Rocephin 8. 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 Continue on colchicine, and allopurinol which was started here, started on clotrimazole or Mycolog-II cream to the left leg rash, no cellulitis of leg. Urine cultures negative, pyuria noted on the urine most likely secondary to vaginitis, with either Mycoplasma Ureaplasma-type bacteria. To be discharged on the doxycycline for 7 days for vaginitis. Medical no pneumonia, although x-rays shows some local infiltrate, outpatient follow-up with chest x- ray, to be done in the clinic to [facility] in [facility] and follow-up with myself in the clinic from discharge FINAL diagnosis 1. SIRS primary source unknown, pyuria, patient has foul-smelling urine, and weakness. Patient would start start empiric on antibiotic, Rocephin and Zithromax secondary to infiltrate the skin and chest x-ray, however patient's asymptomatic to this. Blood cultures has been sent to take, urine culture is negative, most likely Mycoplasma Ureaplasma, component of dehydration, with decreased appetite. Patient would be discharged on doxycycline for urethritis with pyuria 2. Acute urinary tract infection, check for kidney ultrasound, has to rule out kidney, evaluate for pyelonephritis including abscess, WBC is monitored closely, cultures are final -18 hours, IV Rocephin completed, home on 7 day doxycycline, to cover for mycoplasma or Ureaplasma 2 Difficulty of ambulating bilateral ankles, with gouty arthropathy, other crystal deposits, start on colchicine 0.6 mg daily, unable to do NSAID at this time secondary to unilateral kidney, and elevation of creatinine. Patient would need x-rays of the ankle, there is no trauma involved at this time, start hydrochlorothiazide 3. Hypertension, we will change lisinopril HCTZ to lisinopril 20 mg daily, continue Lasix 20 mg daily 4. Diabetes mellitus type 2, on glimepiride 2 mg twice a day, Lantus 30 mg daily 5. Hyperlipidemia with Lipitor 40 mg daily hypothyroidism, levothyroxine 125 g daily 6 CK D stage III, creatinine of 1.29 GFR 48, unilateral kidney present only, patient will be monitored closely, and no nephrotoxin, avoid hypotension 7 Hyperuricemia gout, without tophi, start enalapril 10 mg daily, continue colchicine 7. GI prophylaxis and DVT prophylaxis Patient Condition at Discharge: Stable Plan - Discharge Summary Discharge Rx Participant: Yes New Discharge Prescriptions: New Colchicine [Colcrys] 0.6 mg PO DAILY #30 each lisinopriL [Zestril] 20 mg PO DAILY #30 tab allopurinoL [Zyloprim] 300 mg PO DAILY #30 tab Nystatin/Triamcin Cream [Mycolog 100,000-0.1 Unit/gm-% Cream] 1 applic TOPICAL BID #30 gm Continue Glimepiride [Amaryl] 2 mg PO BID Insulin Glargine [Lantus Vial] 30 unit SQ DAILY Atorvastatin [Lipitor] 40 mg PO HS Levothyroxine Sodium [Synthroid] 125 mcg PO DAILY Furosemide [Lasix] 20 mg PO DAILY Ubidecarenone [Co Q-10] 200 mg PO DAILY Cholecalciferol [Vitamin D3 (25 Mcg = 1000 Iu)] 50 mcg PO DAILY Cinnamon Bark [Cinnamon] 1,000 mg PO DAILY Aspirin EC [Ecotrin Low Dose] 81 mg PO DAILY Potassium Chloride [Klor-Con M15 ER] 15 meq PO DAILY metFORMIN HCL [Glucophage] 500 mg PO BID Metoprolol Succinate [Toprol XL] 50 mg PO DAILY Semaglutide [Ozempic] 0.25 mg SQ TU Discontinued Lisinopril-Hctz 20-25 mg [Zestoretic 20-25] 1 tab PO DAILY Discharge Medication List Atorvastatin [Lipitor] 40 mg PO HS 05/31/14 [History] Glimepiride [Amaryl] 2 mg PO BID 05/31/14 [History] Insulin Glargine [Lantus Vial] 30 unit SQ DAILY 05/31/14 [History] Aspirin EC [Ecotrin Low Dose] 81 mg PO DAILY 11/09/20 [History] Cholecalciferol [Vitamin D3 (25 Mcg = 1000 Iu)] 50 mcg PO DAILY 11/09/20 [History] Cinnamon Bark [Cinnamon] 1,000 mg PO DAILY 11/09/20 [History] Furosemide [Lasix] 20 mg PO DAILY 11/09/20 [History] Levothyroxine Sodium [Synthroid] 125 mcg PO DAILY 11/09/20 [History] Metoprolol Succinate [Toprol XL] 50 mg PO DAILY 11/09/20 [History] Potassium Chloride [Klor-Con M15 ER] 15 meq PO DAILY 11/09/20 [History] Semaglutide [Ozempic] 0.25 mg SQ TU 11/09/20 [History] Ubidecarenone [Co Q-10] 200 mg PO DAILY 11/09/20 [History] metFORMIN HCL [Glucophage] 500 mg PO BID 11/09/20 [History] Colchicine [Colcrys] 0.6 mg PO DAILY #30 each 11/12/20 [Rx] Nystatin/Triamcin Cream [Mycolog 100,000-0.1 Unit/gm-% Cream] 1 applic TOPICAL BID #30 gm 11/12/20 [Rx] allopurinoL [Zyloprim] 300 mg PO DAILY #30 tab 11/12/20 [Rx] lisinopriL [Zestril] 20 mg PO DAILY #30 tab 11/12/20 [Rx] Follow up Appointment(s)/Referral(s): Cinthia Valverde MD [Primary Care Provider] - 1-2 days Raji Mazariegos [NON-STAFF] - As Needed Discharge Disposition: TRANSFER TO SNF/ECF
[2020-11-12 16:57] LABS: Glucose,Whole Blood 175 mg/dL (75-99)
[2020-11-12] MEDS: ATORVASTATIN 40 MG TAB PO SCH (21:20)
[2020-11-12 21:24] LABS: Glucose,Whole Blood 171 mg/dL (75-99)
[2020-11-12 23:33] VITALS: RESP 17
[2020-11-13] MEDS: LEVOTHYROXINE 125 MCG TAB PO SCH (05:39)
[2020-11-13 07:10] LABS: Glucose,Whole Blood 117 mg/dL (75-99)
[2020-11-13] MEDS: FUROSEMIDE 20 MG TAB PO SCH (07:54)
[2020-11-13] MEDS: CHOLECALCIFEROL 25 MCG (1000 IU) TABLET PO SCH (07:54)
[2020-11-13] MEDS: metFORMIN 500 MG TAB PO SCH (07:54)
[2020-11-13] MEDS: POTASSIUM CHLORIDE ER 10 MEQ TAB.ER.PRT PO SCH (07:55)
[2020-11-13] MEDS: lisinopriL 20 MG TAB PO SCH (07:55)
[2020-11-13] MEDS: ASPIRIN 81 MG PO SCH (07:55)
[2020-11-13] MEDS: METOPROLOL SUCCINATE (ER) 50 MG TAB.ER.24H PO SCH (07:55)
[2020-11-13] MEDS: allopurinoL 300 MG TAB PO SCH (07:55)
[2020-11-13] MEDS: COLCHICINE 0.6 MG EACH PO SCH (07:56)
[2020-11-13] MEDS: INSULIN DETEMIR (LEVEMIR) 100 UNIT/ML SYR SQ SCH (07:57)
[2020-11-13] MEDS: GLIMEPIRIDE 2 MG TAB PO SCH (07:57)
[2020-11-13 08:57] VITALS: BP 132/74; PULSE 65; TEMP 98.2
[2020-11-13 11:26] LABS: Glucose,Whole Blood 172 mg/dL (75-99)
== END 2020-11-13 13:25 | DRG 872 ==
LOC: EC 11:15 → 4SSUR 14:14
PROVIDERS: ADMIT Family Medicine; ATTEND Family Medicine
DX: A41.9 Sepsis, unspecified organism (principal); N39.0 Urinary tract infection, site not specified; E03.9 Hypothyroidism, unspecified; E11.22 Type 2 diabetes mellitus with diabetic chronic kidney disease; E11.65 Type 2 diabetes mellitus with hyperglycemia; E78.5 Hyperlipidemia, unspecified; E86.0 Dehydration; I12.9 Hypertensive chronic kidney disease with stage 1 through stage 4 chronic kidney disease, or unspecified chronic kidney disease; J44.9 Chronic obstructive pulmonary disease, unspecified; M10.9 Gout, unspecified; M11.9 Crystal arthropathy, unspecified; N18.30 Chronic kidney disease, stage 3 unspecified; N76.0 Acute vaginitis; Z79.4 Long term (current) use of insulin; Z79.82 Long term (current) use of aspirin; Z79.890 Hormone replacement therapy; Z79.899 Other long term (current) drug therapy; Z90.710 Acquired absence of both cervix and uterus; Z85.9 Personal history of malignant neoplasm, unspecified; Z20.822 Contact with and (suspected) exposure to COVID-19; R21 Rash and other nonspecific skin eruption; R60.0 Localized edema; Z90.5 Acquired absence of kidney
CPT/HCPCS: 36415; 71046; 76770; 80048; 80053; 81001; 83036; 83735; 83880; 84145; 84443; 84484; 84550; 85025; 85379; 85610; 85730; 86038; 87040; 87086; 87635; 93005; 94760; 96374; 96375; 99285

== ENCOUNTER → 2021-01-05 | Outpatient (CLI) | payer MEDICARE ==
--- NOTE | 2021-01-06 07:47 | BD ---
EXAMINATION TYPE: Axial Bone Density DATE OF EXAM: 01/05/2021 COMPARISON: NONE CLINICAL HISTORY: Postmenopausal female. Disorder of bone. Height: 5 FT 1 IN Weight: 274 FRAX RISK QUESTIONS: Alcohol (3 or more units per day): NO Family History (Parent hip fracture): NO Glucocorticoids (More than 3mos): NO (Ex: prednisone, prednisolone, methylprednisolone, dexamethasone, and hydrocortisone). History of Fracture in Adulthood: NO Secondary Osteoporosis: 1. Type 1 Diabetes: TYPE 2 2. Hyperthyroidism: REMOVED 3. Menopause before 45: NO 4. Malnutrition: NO 5. Chronic liver disease: NO Rheumatoid Arthritis: NO Current Tobacco Use: FORMER RISK FACTORS HISTORY OF: Surgery to Spine/Hip(right/left)/Wrist (right/left): NO Family History of Osteoporosis: NO Active: YES Diet low in dairy products/other sources of calcium: NO Postmenopausal woman: AROUND AGE 51 Take estrogen and/or progesterone medications: NO Lost more than 2 inches in height since high school: YES Poor Health: NO MEDICATIONS: Thyroid Medications: YES Which medication: LEVOTHYROXINE How Long: APPROX 25 YEARS AGO Additional Medications: LEVOTHYROXINE, GLIPIZIDE, Atorvastatin MEDS, BLOOD PRESSURE MEDS, LANTUS,OZEM BIC, Additional History: COPD EXAM MEASUREMENTS: Bone mineral densitometry was performed using the [employer] System. Bone mineral density as measured about the Lumbar spine is: ----- L1-L4(G/cm2): 1.525 T Score Values are as follows: ----- L2: 2.7 ----- L3: 3.0 ----- L4: 3.3 ----- L1-L4:2.9 PREV DONE ELSEWHERE Bone mineral density about the R hip (g/cm2): 1.022 Bone mineral density about the L hip (g/cm2): 1.032 T Score values are as follows: -----R Neck: -0.1 -----L Neck: 0.0 -----R Total: 0.3 -----L Total: 0.5 PREV DONE ELSEWHERE IMPRESSION: Normal (Values between +1 and -1 indicate normal bone mass). Consider repeating this study in 5 year s or sooner if there is some new clinical indication. NOTE: T-SCORE=SD OF THE YOUNG ADULT MEAN.
--- NOTE | 2021-01-06 14:40 | MM ---
Reason for exam: additional evaluation requested from prior study. Last mammogram was performed 14 years ago. History: Patient is postmenopausal, has history of endometrial cancer at age 55, and is nulliparous. Family history of breast cancer in sister at age 67. Physical Findings: Nurse did not find any significant physical abnormalities on exam. MG 3D Diag Mammo W/Cad SALINA Bilateral CC and MLO view(s) were taken. No prior studies available for comparison. There are scattered fibroglandular densities. There is no discrete abnormality. These results were verbally communicated with the patient and result sheet given to the patient on 01/05/21. ASSESSMENT: Benign, BI-RAD 2 RECOMMENDATION: Surgical consultation of the left breast. Manage on a clinical basis with regard to left nipple. Called Dr. Valverde's office with mammographic findings and has scheduled an appointment for the patient for 02/10/21 at 15:[address] Wu. PRELIMINARY REPORT CALLED AND FAXED TO DR. WU ON Follow-up diagnostic mammogram of both breasts in 1 year.
== END | disposition home or self-care (01) ==
LOC: RADMAMWWP 14:54
PROVIDERS: ATTEND Family Medicine
DX: N64.89 Other specified disorders of breast (principal); Z78.0 Asymptomatic menopausal state; Z80.3 Family history of malignant neoplasm of breast; Z85.42 Personal history of malignant neoplasm of other parts of uterus
CPT/HCPCS: 77080; 77066; G0279; 77062

== ENCOUNTER → 2021-02-10 | Outpatient (CLI) | payer MEDICARE ==
--- NOTE | 2021-02-10 15:50 | P.GSHP ---
History of Present Illness H&P Date: 02/10/21 Chief Complaint: firm left nipple Belen is a 70 -year-old white female seen in consultation for Dr. Valverde regarding a firm left and nipple. She was seen for a bilateral screening mammogram on [id number] and this was noted by the nurse. The patient's mammogram was benign BIRADS 2. Patient does not complain of any lumps masses or nodules of concern in either breast. She is not complaining of any nipple discharge or skin changes. She is not complaining of any trauma or infection in the breast. Caffeine: 1 cup/day nicotine: stopped 20 years ago, used to smoke 2 PPD chocolate: occasional Family History: sister: breast cancer in 60's 2 nephews colon cancer paternal grandfather: prostate cancer patient: [facility] for uterine cancer/ no chemo or radiation; 2005 Hormonal History: menarche: 11 G0 menopause: 49 BCP: none hormones: none Surgical history: Total abdominal hysterectomy for uterine cancer total thyroidectomy colonoscopy Medical history: diabetes kidney disease COPD HTN Social History: nicotine: 2 packs per day stopped 20 years ago Alcohol: 3 times a year/wine drugs: none - Constitutional Constitutional: Denies chills, Denies fever - EENT Eyes: right pain (Corneal dystrophy), denies blurred vision Ears: left: tinnitus, deny: decreased hearing Ears, nose, mouth and throat: Denies headache, Denies sore throat - Breasts Breasts: bilateral: as per HPI - Cardiovascular Cardiovascular: Reports shortness of breath, Denies chest pain - Respiratory Respiratory: Denies cough, Denies 7 - Gastrointestinal Gastrointestinal: Reports constipation, Denies abdominal pain, Denies diarrhea, Denies nausea, Denies vomiting - Genitourinary (Female) Genitourinary: Denies dysuria, Denies hematuria - Menstruation Menstruation: Reports post hysterectomy - Musculoskeletal Musculoskeletal: Reports myalgias - Integumentary Integumentary: Denies pruritus, Denies rash - Neurological Neurological: Denies numbness, Denies weakness - Psychiatric Psychiatric: Denies anxiety, Denies depression - Endocrine Comment: diabetes, hypothyroid Endocrine: Reports weight change, Denies fatigue - Hematologic/Lymphatic Comment: baby aspirin - Allergic/Immunologic Allergic/Immunologic: Reports as per HPI Past Medical History Past Medical History: Cancer, COPD, Diabetes Mellitus, Hypertension Additional Past Medical History / Comment(s): uterine History of Any Multi-Drug Resistant Organisms: None Reported Past Surgical History: Hysterectomy Additional Past Surgical History / Comment(s): thyroid Past Anesthesia/Blood Transfusion Reactions: No Reported Reaction Past Psychological History: No Psychological Hx Reported Past Alcohol Use History: None Reported Past Drug Use History: None Reported - Past Family History Father Family Medical History: No Reported History Medications and Allergies Home Medications Medication Instructions Recorded Confirmed Type Atorvastatin [Lipitor] 40 mg PO HS 05/31/14 11/09/20 History Glimepiride [Amaryl] 2 mg PO BID 05/31/14 11/09/20 History Insulin Glargine [Lantus Vial] 30 unit SQ DAILY 05/31/14 11/09/20 History Aspirin EC [Ecotrin Low Dose] 81 mg PO DAILY 11/09/20 11/09/20 History Cholecalciferol [Vitamin D3 (25 50 mcg PO DAILY 11/09/20 11/09/20 History Mcg = 1000 Iu)] Cinnamon Bark [Cinnamon] 1,000 mg PO DAILY 11/09/20 11/09/20 History Furosemide [Lasix] 20 mg PO DAILY 11/09/20 11/09/20 History Levothyroxine Sodium [Synthroid] 125 mcg PO DAILY 11/09/20 11/09/20 History Metoprolol Succinate [Toprol XL] 50 mg PO DAILY 11/09/20 11/09/20 History Potassium Chloride [Klor-Con M15 15 meq PO DAILY 11/09/20 11/09/20 History ER] Semaglutide [Ozempic] 0.25 mg SQ TU 11/09/20 11/09/20 History Ubidecarenone [Co Q-10] 200 mg PO DAILY 11/09/20 11/09/20 History metFORMIN HCL [Glucophage] 500 mg PO BID 11/09/20 11/09/20 History Colchicine [Colcrys] 0.6 mg PO DAILY #30 each 11/12/20 Rx Nystatin/Triamcin Cream [Mycolog 1 applic TOPICAL BID #30 gm 11/12/20 Rx 100,000-0.1 Unit/gm-% Cream] allopurinoL [Zyloprim] 300 mg PO DAILY #30 tab 11/12/20 Rx lisinopriL [Zestril] 20 mg PO DAILY #30 tab 11/12/20 Rx Allergies Allergy/AdvReac Type Severity Reaction Status Date / Time No Known Allergies Allergy Verified 11/09/20 13:17 Surgical - Exam Temp. 07.5 198/102 HR: 69 - General no distress - Eyes normal ocular movement - ENT normal nares - Neck trachea midline - Respiratory normal respiratory effort - Cardiovascular Rhythm: regular Heart Sounds: normal: S1, S2 - Abdomen Abdomen: soft - Integumentary normal turgor - Neurologic no disoriented, no combative - Musculoskeletal uses a cane - Psychiatric oriented to time, oriented to person, oriented to place, speech is normal, memory intact Breast Exam: BRA: 36DD inspection: bilalteral grade 3 ptosis palpation: right breast: fibrocystic changes no dominant masses or nodules of concern; patient unable to lay back for examination Right axilla: No adenopathy of concern Left breast: fibrocystic changes, patient unable to lay back for examination, left nipple complex firm with nodularity posterior to this area; approximately 1-1/2 cm in size Left axilla: No adenopathy of concern Results Mammogram results reviewed Assessment and Plan Assessment: Impression: 1. Fibrocystic breast changes 2. Recent bilateral mammogram benign BIRADS 2 from [id number] 3. Firm left nipple complex 3. Diabetes 4. Hypertension 5. Myalgias Plan: 1. Ultrasound left nipple areolar complex with core biopsy 2. Follow up after ultrasound and core biopsy of the left nipple areolar complex area CC: Dr. Valverde
[2021-02-10 15:51] VITALS: BP 198/102; PULSE 69; RESP 16; TEMP 97.5
== END ==
LOC: WWCWWP 14:48
PROVIDERS: ATTEND Surgery
DX: N60.12 Diffuse cystic mastopathy of left breast (principal); E11.9 Type 2 diabetes mellitus without complications; I10 Essential (primary) hypertension; M79.10 Myalgia, unspecified site; J44.9 Chronic obstructive pulmonary disease, unspecified; Z87.891 Personal history of nicotine dependence; Z79.84 Long term (current) use of oral hypoglycemic drugs; Z79.4 Long term (current) use of insulin; Z79.899 Other long term (current) drug therapy

== ENCOUNTER → 2021-04-07 | Outpatient (CLI) | payer MEDICARE ==
--- NOTE | 2021-04-07 13:22 | USB ---
Reason for exam: clinical finding. History: Patient is postmenopausal, has history of endometrial cancer at age 55, and is nulliparous. Family history of breast cancer in sister at age 67. Physical Findings: Nurse Summary: left nipple firm/thickened (nurse dw). US Breast Limited LT Left limited breast ultrasound including focal area of concern, retroareolar and axilla demonstrates no cystic or solid lesion seen. Left nipple scanned. Large, slightly inverted left nipple. No subareolar or periareaolar abnormality. These results were verbally communicated with the patient and result sheet given to the patient on 04/07/21. ASSESSMENT: Probably benign, BI-RAD 3 RECOMMENDATION: Follow-up diagnostic mammogram of the left breast in 6 months.
== END | disposition home or self-care (01) ==
LOC: RADUSWWP 11:30
PROVIDERS: ATTEND Surgery
DX: N63.0 Unspecified lump in unspecified breast (principal); Z78.0 Asymptomatic menopausal state; Z85.42 Personal history of malignant neoplasm of other parts of uterus; Z80.3 Family history of malignant neoplasm of breast

== ENCOUNTER → 2021-07-15 | Outpatient (CLI) | payer MEDICARE ==
--- NOTE | 2021-04-15 15:48 | P.PN ---
Progress Note - Text Progress Note Date: 04/15/21 I have had a telephone conversation with Belen Rosa today. She was seen on [id number] and noted to have an area of concern posterior to the left nipple areolar complex. An ultrasound was ordered of this area and a core biopsy was recommended. An ultrasound was performed on 03-11-21 and no lesion of concern was identified and the procedure was canceled. The patient was told to have a repeat ultrasound in 3 months time. I have called the patient because she did not come for her biopsy results and have recommended that she return and have a core biopsy of the area of firmness which was palpated. At this time she has declined an appointment for core biopsy of palpable change and states she will have a repeat ultrasound in 3 months will see me again at that time.
[2021-07-15 10:42] VITALS: BP 148/76; PULSE 77; RESP 18; TEMP 97.7
--- NOTE | 2021-07-15 10:58 | P.PN ---
Subjective Progress Note Date: 07/15/21 Principal diagnosis: Nodule posterior to the left nipple areolar complex Belen is a 70 -year-old white female seen in consultation for Dr. Valverde regarding a firm left nipple. She was seen for a bilateral screening mammogram on [id number] and this was noted by the nurse. The patient's mammogram was benign BIRADS 2. Patient did not complain of any lumps masses or nodules of concern in either breast. She was not complaining of any nipple discharge or skin changes. She was not complaining of any trauma or infection in the breast. On examination of 02-10-21 she had been noted to have some nodularity behind the left nipple aerolar complex. She was recommended to have an ultrasound, one was done on 04-07-21 which was BIRAD 3 and repeat in 6 months recommended. She presents today for re-examination. She did not come for post ultrasound appointment and after conversation on the phone it was decided that she would have a repeat ultrasound in 3 months with examination at that time. The area of concern in the left breast is persistent. It has not gotten larger but is not on smaller either. It is not painful. She is not having any fever or chills. She is not complaining of any lumps masses or nodules otherwise in either breast. Caffeine: 1 cup/day nicotine: stopped 20 years ago, used to smoke 2 PPD chocolate: occasional Family History: sister: breast cancer in 60's 2 nephews colon cancer paternal grandfather: prostate cancer patient: [facility] for uterine cancer/ no chemo or radiation; 2005 Hormonal History: menarche: 11 G0 menopause: 49 BCP: none hormones: none Surgical history: Total abdominal hysterectomy for uterine cancer total thyroidectomy colonoscopy Medical history: diabetes kidney disease COPD HTN Social History: nicotine: 2 packs per day stopped 20 years ago Alcohol: 3 times a year/wine drugs: none - Constitutional Constitutional: Denies chills, Denies fever - EENT Eyes: right pain (Corneal dystrophy), denies blurred vision Ears: left: tinnitus, deny: decreased hearing Ears, nose, mouth and throat: Denies headache, Denies sore throat - Breasts Breasts: bilateral: as per HPI - Cardiovascular Cardiovascular: Reports shortness of breath, Denies chest pain - Respiratory Respiratory: Denies cough - Gastrointestinal Gastrointestinal: Reports constipation, Denies abdominal pain, Denies diarrhea, Denies nausea, Denies vomiting - Genitourinary (Female) Genitourinary: Denies dysuria, Denies hematuria - Menstruation Menstruation: Reports post hysterectomy - Musculoskeletal Musculoskeletal: Reports myalgias - Integumentary Integumentary: Denies pruritus, Denies rash - Neurological Neurological: Denies numbness, Denies weakness - Psychiatric Psychiatric: Denies anxiety, Denies depression - Endocrine Comment: diabetes, hypothyroid Endocrine: Reports weight change, Denies fatigue - Hematologic/Lymphatic Comment: baby aspirin - Allergic/Immunologic Allergic/Immunologic: Reports as per HPI Objective - Vital Signs Vital signs: Vital Signs Temp 97.7 F 07/15/21 10:37 Pulse 77 07/15/21 10:37 Resp 18 07/15/21 10:37 BP 148/76 07/15/21 10:37 Pulse Ox 98 07/15/21 10:37 Intake & Output 07/14/21 07/15/21 07/15/21 18:59 06:59 18:59 Weight 125.191 kg - Constitutional General appearance: Present: cooperative - EENT Eyes: Present: EOMI ENT: Present: hearing grossly normal - Neck Neck: Present: normal ROM - Respiratory Respiratory: bilateral: CTA - Cardiovascular Heart sounds: normal: S1, S2 - Integumentary Integumentary Comment(s): Positive cervical adenopathy - Musculoskeletal Musculoskeletal Comment(s): uses a cane for balance - Psychiatric Psychiatric: Present: A&O x's 3, appropriate affect, intact judgment & insight - Additional findings Additional findings: Breast Exam: BRA: 44DD inspection: bilateral grade 3 ptosis palpation: right breast: Patient unable to be on examining table therefore she is examined sitting up, no lesions of concern noted in the right breast Right axilla: No adenopathy of concern Left breast: Firm nodularity posterior to the left nipple areolar complex , no other masses or notches of concern Left axilla: No adenopathy of concern patient has bilateral cervical adenopathy, right greater than left Assessment and Plan Assessment: Impression: diabetes kidney disease COPD HTN fullness behind left nipple complex Plan: FNA of fullness behind left nipple, consent obtained Risk and benefits of the procedure discussed with the patient. Risks include but are not limited to bleeding, infection, reaction to the anesthetic. Depending on results of the biopsy further recommendation follow. CC: Dr. Valverde
== END ==
LOC: WWCWWP 10:28
PROVIDERS: ATTEND Surgery
DX: N63.42 Unspecified lump in left breast, subareolar (principal); R59.9 Enlarged lymph nodes, unspecified; I10 Essential (primary) hypertension; J44.9 Chronic obstructive pulmonary disease, unspecified; E11.9 Type 2 diabetes mellitus without complications; Z80.3 Family history of malignant neoplasm of breast; Z87.891 Personal history of nicotine dependence

== ENCOUNTER → 2021-07-22 | Outpatient (CLI) | payer MEDICARE ==
[2021-07-22 15:10] VITALS: BP 177/84; PULSE 79; RESP 18; TEMP 97.9
--- NOTE | 2021-07-22 15:14 | P.PN ---
Progress Note - Text Progress Note Date: 07/22/21 Belen underwent an FNA of an area posterior to the left nipple on 07-15-21. Pathology revealed a papillary lesion. 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 Valverde
== END ==
LOC: WWCWWP 14:05
PROVIDERS: ATTEND Surgery
DX: D24.2 Benign neoplasm of left breast (principal); R22.9 Localized swelling, mass and lump, unspecified; Z87.891 Personal history of nicotine dependence

== ENCOUNTER → 2021-08-03 | Outpatient (CLI) | payer MEDICARE ==
--- NOTE | 2021-08-04 09:24 | US ---
EXAMINATION TYPE: US thyroid st tissue head/neck DATE OF EXAM: 08/03/2021 COMPARISON: NONE CLINICAL HISTORY: 71-year-old female R22.0 SWELLING, MASS AND LUMP IN NECK. 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 Heterogeneous solid TR4 nodule in the right thyroid lobe measuring 3.4 cm. FNA recommended. 2. There are a few scattered small lymph nodes on both sides of the neck measuring up to 6 mm. No renee picious cervical lymphadenopathy identified at this time.
== END | disposition home or self-care (01) ==
LOC: RADUSWWP 16:19
PROVIDERS: ATTEND Surgery
DX: E04.1 Nontoxic single thyroid nodule (principal)
CPT/HCPCS: 76536

== ENCOUNTER 2021-08-30 07:23 | Day surgery (SDC) | payer MEDICARE ==
[~2021-08-30 07:23] MED LIST: HEPARIN SODIUM,PORCINE/PF 5,000 UNIT/0.5 ML SYRINGE SQ PRN; ceFAZolin 3 GM in SODIUM CHLORIDE 0.9% 100 ML IVPB PRN
[2021-08-30] MEDS ORDERED: HYDROmorphone 0.5 MG/0.5 ML SYRINGE IVP PRN (07:45)
[2021-08-30] MEDS ORDERED: DEXAMETHASONE SOD PHOSPHATE 4 MG/ML 1 ML VIAL IV ONE (07:45)
[2021-08-30] MEDS ORDERED: ONDANSETRON 4 MG/2 ML VIAL IVP ONE (07:45)
[2021-08-30] MEDS ORDERED: LIDOCAINE 1% (10MG/ML) FOR IV START INTRADERMA PRN (07:45)
[2021-08-30] MEDS: LACTATED RINGERS 1,000 ML IV SCH ×2 (08:30→11:14)
[2021-08-30] MEDS ORDERED: LIDOCAINE 2% INJ 20 MG/ML (2 ML VIAL) ONE (08:44)
[2021-08-30] MEDS ORDERED: MIDAZOLAM 2 MG/2 ML VIAL ONE (08:44)
[2021-08-30] MEDS ORDERED: fentaNYL (PF) 50 MCG/ML 2 ML AMP ONE (08:44)
[2021-08-30] MEDS ORDERED: SUCCINYLCHOLINE CHLORIDE VIAL 200 MG/10 ML VIAL IV ONE (08:44)
[2021-08-30] MEDS ORDERED: PROPOFOL 10 MG/ML 20 ML VIAL IV ONE (08:44)
[2021-08-30 08:46] LABS: Glucose,Whole Blood 165 mg/dL (75-99)
[2021-08-30 08:54] LABS: Basophils # (A) 0.1 k/uL (0-0.2); Basophils % (A) 1 %; Eosinophils # (A) 0.4 k/uL (0-0.7); Eosinophils % (A) 4 %; HCT 43.3 % (34.0-46.0); HGB 13.7 gm/dL (11.4-16.0); Lymphocytes # (A) 1.7 k/uL (1.0-4.8); Lymphocytes % (A) 17 %; MCH 28.6 pg (25.0-35.0); MCHC 31.6 g/dL (31.0-37.0); MCV 90.6 fL (80.0-100.0); Mean Platelet Volume 8.3; Monocytes # (A) 0.6 k/uL (0-1.0); Monocytes % (A) 6 %; Neutrophils # (A) 6.9 k/uL (1.3-7.7); Neutrophils % (A) 69 %; Platelet Count 302 k/uL (150-450); RBC 4.78 m/uL (3.80-5.40); RDW 15.2 % (11.5-15.5)
[2021-08-30 09:09] LABS: Calcium 8.9 mg/dL (8.4-10.2); Potassium 4.2 mmol/L (3.5-5.1)
[2021-08-30] MEDS ORDERED: LIDOCAINE (PF) 10 MG/ML 2 ML VIAL SQ ONE ×2 (09:10)
--- NOTE | 2021-08-30 10:03 | P.OP ---
Date of Procedure: 08/30/21 Preoperative Diagnosis: Mass posterior to the left nipple areolar complex Postoperative Diagnosis: Same Procedure(s) Performed: Excision of mass posterior to the left nipple areolar complex Anesthesia: RENETTAA Surgeon: Kristy Wu Estimated Blood Loss (ml): 3 Pathology: other (Tissue posterior to the left nipple areolar complex) Condition: stable Disposition: same day Indications for Procedure: Mass posterior to left nipple areolar complex Operative Findings: Dense breast tissue/mass posterior to the left nipple areolar complex with extension into the nipple Description of Procedure: The area of concern in the left breast was prepped and draped using a sterile fashion. This was done after induction of anesthesia. Circumareolar incision was made and carried down to the palpable abnormality. Circumferential di ssection was performed of the mass with extension up to the area of the nipple. The mass did extend inflammatory didn't into the skin of the nipple and the tip of the nipple was necessary to be removed. After assured that hemostasis was attained the wound was well irrigated. Surgicel and pyriform was placed. The specimen was painted for orientation. The skin of the anterior tip of the nipple was removed. The lesion extended into this as a new anterior margin. The deep tissues were closed using 3-0 Vicryl suture. This is followed by closure of the skin with Monocryl and several nylon sutures. The patient tolerated the procedure in stable condition. All instrument and sponge counts were correct at the end of the case.
[2021-08-30 10:08] VITALS: TEMP 97.6
--- NOTE | 2021-08-30 10:08 | P.DS ---
Providers Attending physician: Kristy Wu Primary care physician: Cinthia Valverde Plan - Discharge Summary Discharge Rx Participant: No New Discharge Prescriptions: No Action Glimepiride [Amaryl] 4 mg PO BID Insulin Glargine [Lantus Vial] 30 unit SQ DAILY Atorvastatin [Lipitor] 40 mg PO HS Levothyroxine Sodium [Synthroid] 125 mcg PO DAILY Furosemide [Lasix] 40 mg PO DAILY Ubidecarenone [Co Q-10] 200 mg PO DAILY Cholecalciferol [Vitamin D3 (25 Mcg = 1000 Iu)] 50 mcg PO DAILY Cinnamon Bark [Cinnamon] 1,000 mg PO DAILY Aspirin EC [Ecotrin Low Dose] 81 mg PO DAILY Baclofen 10 mg PO DAILY Potassium Chloride [Klor-Con M15 ER] 15 meq PO DAILY Metoprolol Succinate [Toprol XL] 50 mg PO DAILY Semaglutide [Ozempic] 0.5 mg SQ SA lisinopriL [Zestril] 20 mg PO DAILY #30 tab allopurinoL [Zyloprim] 300 mg PO DAILY #30 tab Colchicine [Colcrys] 0.6 mg PO DAILY PRN PRN Reason: Pain Ferrous Sulfate [Feosol] 325 mg PO DAILY Discharge Medication List Atorvastatin [Lipitor] 40 mg PO HS 05/31/14 [History] Glimepiride [Amaryl] 4 mg PO BID 05/31/14 [History] Insulin Glargine [Lantus Vial] 30 unit SQ DAILY 05/31/14 [History] Aspirin EC [Ecotrin Low Dose] 81 mg PO DAILY 11/09/20 [History] Cholecalciferol [Vitamin D3 (25 Mcg = 1000 Iu)] 50 mcg PO DAILY 11/09/20 [History] Cinnamon Bark [Cinnamon] 1,000 mg PO DAILY 11/09/20 [History] Furosemide [Lasix] 40 mg PO DAILY 11/09/20 [History] Levothyroxine Sodium [Synthroid] 125 mcg PO DAILY 11/09/20 [History] Metoprolol Succinate [Toprol XL] 50 mg PO DAILY 11/09/20 [History] Potassium Chloride [Klor-Con M15 ER] 15 meq PO DAILY 11/09/20 [History] Semaglutide [Ozempic] 0.5 mg SQ SA 11/09/20 [History] Ubidecarenone [Co Q-10] 200 mg PO DAILY 11/09/20 [History] allopurinoL [Zyloprim] 300 mg PO DAILY #30 tab 11/12/20 [Rx] lisinopriL [Zestril] 20 mg PO DAILY #30 tab 11/12/20 [Rx] Baclofen 10 mg PO DAILY 03/31/21 [History] Colchicine [Colcrys] 0.6 mg PO DAILY PRN 08/29/21 [History] Ferrous Sulfate [Feosol] 325 mg PO DAILY 08/30/21 [History] Follow up Appointment(s)/Referral(s): Kristy Wu MD [STAFF PHYSICIAN] - 1 Week Activity/Diet/Wound Care/Special Instructions: do not drive today may shower after 48 hours wear bra at all times Discharge Disposition: HOME SELF-CARE
[2021-08-30 10:14] LABS: Glucose,Whole Blood 157 mg/dL (75-99)
[2021-08-30] MEDS ORDERED: LABETALOL SYRINGE 5 MG/ML IVP ONE (10:35)
[2021-08-30] MEDS ORDERED: hydrALAZINE HCL 20 MG/ML 1 ML VIAL IVP ONE (11:07)
[2021-08-30 12:09] VITALS: BP 162/80; PULSE 82; RESP 16
== END 2021-08-30 12:40 | disposition home or self-care (01) ==
LOC: OR 07:23
PROVIDERS: ATTEND Surgery
DX: D24.2 Benign neoplasm of left breast (principal); E04.1 Nontoxic single thyroid nodule; I12.9 Hypertensive chronic kidney disease with stage 1 through stage 4 chronic kidney disease, or unspecified chronic kidney disease; E11.22 Type 2 diabetes mellitus with diabetic chronic kidney disease; N18.4 Chronic kidney disease, stage 4 (severe); J44.9 Chronic obstructive pulmonary disease, unspecified; E89.0 Postprocedural hypothyroidism; Z87.891 Personal history of nicotine dependence; Z98.890 Other specified postprocedural states; Z80.3 Family history of malignant neoplasm of breast; Z80.0 Family history of malignant neoplasm of digestive organs; Z80.42 Family history of malignant neoplasm of prostate; Z85.42 Personal history of malignant neoplasm of other parts of uterus; Z90.710 Acquired absence of both cervix and uterus; Z82.49 Family history of ischemic heart disease and other diseases of the circulatory system; Z80.7 Family history of other malignant neoplasms of lymphoid, hematopoietic and related tissues; G47.33 Obstructive sleep apnea (adult) (pediatric); E78.5 Hyperlipidemia, unspecified; M10.9 Gout, unspecified; Z79.890 Hormone replacement therapy; Z79.4 Long term (current) use of insulin; Z79.899 Other long term (current) drug therapy
CPT/HCPCS: 19120; 88305; 80048; 85025; 88342; 88341; J2250; J0330; J0360; J2001 ×2; J1100; J0690; J2405; J3010; J2704; J1644

== ENCOUNTER → 2021-09-08 | Outpatient (CLI) | payer MEDICARE ==
--- NOTE | 2021-09-08 16:19 | P.PN ---
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 Valverde regarding a firm left nipple. She was seen for a bilateral screening mammogram on 10120426 and this was noted by the nurse. The patient's mammogram was benign BIRADS 2. Patient did not complain of any lumps masses or nodules of concern in either breast. She was not complaining of any nipple discharge or skin changes. She was not complaining of any trauma or infection in the breast. On examination of 02-10-21 she had been noted to have some nodularity behind the left nipple aerolar complex. She was recommended to have an ultrasound, one was done on 04-07-21 which was BIRAD 3 and repeat in 6 months recommended. She presents today for re-examination. She did not come for post ultrasound appointment and after conversation on the phone it was decided that she would have a repeat ultrasound in 3 months with examination at that time. The area of concern in the left breast is persistent. It has not gotten larger but is not on smaller either. It is not painful. She is not having any fever or chills. She is not complaining of any lumps masses or nodules otherwise in either breast. On 07-15-21 an FNA of the area of concern behind the left nipple was preformed. This was consistent with a papillary lesion. The patient had an ultrasound of her thyroid and soft tissues of the head and neck and . She was noted to have a heterogeneous solid thyroid nodule in the right thyroid lobe measuring 2.4 cm for which FNA was recommended. Scattered lymph nodes were noted on both sides of the neck. Otherwise no suspicious adenopathy was documented. 09-08-21 Pathology from excision of lesion on 6721 revealed a benign intraductal papilloma with tumor present at into an cauterized anterior and medial margins. All other margins favored were negative. The patient tolerated the surgery without difficulty. Caffeine: 1 cup/day nicotine: stopped 20 years ago, used to smoke 2 PPD chocolate: occasional Family History: sister: breast cancer in 60's 2 nephews colon cancer paternal grandfather: prostate cancer patient: [facility] for uterine cancer/ no chemo or radiation; 2005 Hormonal History: menarche: 11 G0 menopause: 49 BCP: none hormones: none Surgical history: Total abdominal hysterectomy for uterine cancer total thyroidectomy colonoscopy Medical history: diabetes kidney disease COPD HTN Social History: nicotine: 2 packs per day stopped 20 years ago Alcohol: 3 times a year/wine drugs: none - Constitutional Constitutional: Denies chills, Denies fever - EENT Eyes: right pain (Corneal dystrophy), denies blurred vision Ears: left: tinnitus, deny: decreased hearing Ears, nose, mouth and throat: Denies headache, Denies sore throat - Breasts Breasts: bilateral: as per HPI - Cardiovascular Cardiovascular: Reports shortness of breath, Denies chest pain - Respiratory Respiratory: Denies cough - Gastrointestinal Gastrointestinal: Reports constipation, Denies abdominal pain, Denies diarrhea, Denies nausea, Denies vomiting - Genitourinary (Female) Genitourinary: Denies dysuria, Denies hematuria - Menstruation Menstruation: Reports post hysterectomy - Musculoskeletal Musculoskeletal: Reports myalgias - Integumentary Integumentary: Denies pruritus, Denies rash - Neurological Neurological: Denies numbness, Denies weakness - Psychiatric Psychiatric: Denies anxiety, Denies depression - Endocrine Comment: diabetes, hypothyroid Endocrine: Reports weight change, Denies fatigue - Hematologic/Lymphatic Comment: baby aspirin - Allergic/Immunologic Allergic/Immunologic: Reports as per HPI Objective - Constitutional General appearance: Present: cooperative - EENT Eyes: Present: EOMI ENT: Present: hearing grossly normal - Neck Neck: Present: normal ROM - Respiratory Respiratory: bilateral: CTA - Cardiovascular Heart sounds: normal: S1, S2 - Integumentary Integumentary Comment(s): Incision left breast healing no evidence of infection - Musculoskeletal Musculoskeletal: Present: gait normal - Psychiatric Psychiatric: Present: A&O x's 3, appropriate affect, intact judgment & insight Assessment and Plan Assessment: Impression: 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 Risks of the procedure include bleeding, infection, reaction to the anesthetic. The patient understands and wishes to proceed CC: Dr. Valverde
== END ==
LOC: WWCWWP 15:30
PROVIDERS: ATTEND Surgery
DX: D24.2 Benign neoplasm of left breast (principal); E11.9 Type 2 diabetes mellitus without complications; J44.9 Chronic obstructive pulmonary disease, unspecified; I10 Essential (primary) hypertension; Z87.891 Personal history of nicotine dependence

== ENCOUNTER → 2021-10-04 | Outpatient (CLI) | payer MEDICARE ==
--- NOTE | 2021-10-04 12:03 | P.PN ---
Progress Note - Text Progress Note Date: 10/04/21 Patient is seen today and sutures are removed from the left prior surgical periareolar site. She is doing well with no evidence of infection. She will be scheduled for wider excision of the area in approximately 1 month. She had an excisional biopsy of a lesion on that side on 6721 which revealed a benign intraductal papilloma with tumor present at the anterior medial margins. This was invading the actual area of the nipple and areolar skin and after discussion with the patient she wishes the area to be completely excised.
[2021-10-04 12:35] VITALS: BP 150/77; PULSE 79; RESP 20; TEMP 98.4
== END ==
LOC: WWCWWP 11:49
PROVIDERS: ATTEND Surgery
DX: Z48.02 Encounter for removal of sutures (principal); D24.2 Benign neoplasm of left breast; Z87.891 Personal history of nicotine dependence

== ENCOUNTER → 2021-10-21 | Outpatient (CLI) | payer MEDICARE ==
[2021-10-21 09:38] VITALS: BP 150/72; PULSE 71; RESP 18; TEMP 97.8
--- NOTE | 2021-10-21 09:56 | P.PN ---
Subjective Progress Note Date: 10/21/21 Principal diagnosis: Papillary lesion incompletely excised left nipple aerolar complex Belen is a 71-year-old white female who underwent an excision of a posterior nipple lesion on 6721. This revealed a benign intraductal papilloma with tumor present on the anterior and medial margins. The area was invading the actual area of the nipple and areolar skin. This continues to be firm and at this time for clear margins we have discussed a central lumpectomy. The patient was additionally noted to have some supraclavicular swelling in the right supraclavicular adenopathy. An ultrasound of the thyroid and soft tissues of the head and neck of are performed. She had a heterogeneous solid thyroid nodule in the right thyroid measuring 2.4 cm for which FNA was recommended. Scattered lymph nodes were noted on both sides of the neck. She will follow up with this Dr. Valverde. The last bilateral mammogram was on [id number] this was benign BIRADS 2 an ultrasound was done of the left nipple areolar area and . Repeat in 6 months was recommended. She was seen by me in the office however at an FNA was done of the area of fullness behind the nipple areolar complex which showed features consistent with a papillary neoplasia. This led to excision on 6721. The patient however wished to attempt to save the nipple areolar complex. At the time of excision however it was noted that the tumor seemed to be extending into the actual skin of the nipple areolar complex and this was confirmed on permanent pathology. At this time the patient wishes to have complete excision with a central lumpectomy. Caffeine: 1 cup/day nicotine: stopped 20 years ago, used to smoke 2 PPD chocolate: occasional Family History: sister: breast cancer in 60's 2 nephews colon cancer paternal grandfather: prostate cancer patient: [facility] for uterine cancer/ no chemo or radiation; 2005 Hormonal History: menarche: 11 G0 menopause: 49 BCP: none hormones: none Surgical history: Total abdominal hysterectomy for uterine cancer total thyroidectomy colonoscopy Medical history: diabetes kidney disease COPD HTN Social History: nicotine: 2 packs per day stopped 20 years ago Alcohol: 3 times a year/wine drugs: none - Constitutional Constitutional: Denies chills, Denies fever - EENT Eyes: right pain (Corneal dystrophy), denies blurred vision Ears: left: tinnitus, deny: decreased hearing Ears, nose, mouth and throat: Denies headache, Denies sore throat - Breasts Breasts: bilateral: as per HPI - Cardiovascular Cardiovascular: Reports shortness of breath, Denies chest pain - Respiratory Respiratory: Denies cough - Gastrointestinal Gastrointestinal: Reports constipation, Denies abdominal pain, Denies diarrhea, Denies nausea, Denies vomiting - Genitourinary (Female) Genitourinary: Denies dysuria, Denies hematuria - Menstruation Menstruation: Reports post hysterectomy - Musculoskeletal Musculoskeletal: Reports myalgias - Integumentary Integumentary: Denies pruritus, Denies rash - Neurological Neurological: Denies numbness, Denies weakness - Psychiatric Psychiatric: Denies anxiety, Denies depression - Endocrine Comment: diabetes, hypothyroid Endocrine: Reports weight change, Denies fatigue - Hematologic/Lymphatic Comment: baby aspirin - Allergic/Immunologic Allergic/Immunologic: Reports as per HPI Objective - Vital Signs Vital signs: Intake & Output 10/20/21 10/21/21 10/21/21 18:59 06:59 18:59 Weight 125.191 kg - Exam BMI: 48.9 - Constitutional General appearance: Present: cooperative - EENT ENT: Present: hearing grossly normal - Neck Details: fullness soft tissues bilateral neck Neck: Present: normal ROM - Respiratory Respiratory: bilateral: CTA - Cardiovascular Rhythm: regular Heart sounds: normal: S1, S2 - Gastrointestinal General gastrointestinal: Present: soft - Integumentary Integumentary: Present: normal turgor - Musculoskeletal Musculoskeletal Comment(s): uses a cane - Psychiatric Psychiatric: Present: A&O x's 3, appropriate affect, intact judgment & insight - Additional findings Additional findings: Breast examination: BRA: 42D inspection: Bilateral grade 2/3 ptosis, on the left breast there is distortion related to the prior surgery and papillary lesion at the left nipple areolar complex Palpation: Right breast: Fibrocystic changes no dominant masses or nodules of concern Right axilla: No adenopathy of concern Left breast: Full list behind the nipple areolar complex with distortion related to prior surgery suspect residual papillary lesion, otherwise no dominant masses or nodules of concern Left axilla: No adenopathy of concern Right supraclavicular cervical adenopathy noted Assessment and Plan Assessment: Impression: diabetes kidney disease COPD HTN Residual papillary lesion left nipple areolar complex area with distortion of the nipple areolar complex 2.5 cm soft tissue mass in the area of the thyroid noted on prior ultrasound Bilateral cervical fullness with right cervical adenopathy Plan: Left breast central lumpectomy to remove the papillary lesion completely Follow-up with Dr. Valverde regarding soft tissue fullness and cervical area as well as in ultrasound with questionable thyroid lesion Preoperative clearance from Dr. Fortune Risk and benefits of the procedure discussed with the patient. Risks include but are not limited to bleeding, infection, reaction to the anesthetic. There will be asymmetry of the breast the patient understands this and wishes to proceed. CC: Dr. Valverde
== END ==
LOC: WWCWWP 09:26
PROVIDERS: ATTEND Surgery
DX: D24.2 Benign neoplasm of left breast (principal); E11.9 Type 2 diabetes mellitus without complications; J44.9 Chronic obstructive pulmonary disease, unspecified; I10 Essential (primary) hypertension; Z87.891 Personal history of nicotine dependence; N28.9 Disorder of kidney and ureter, unspecified

== ENCOUNTER → 2021-11-21 | Outpatient (CLI) | payer MEDICARE ==
--- NOTE | 2021-11-21 12:34 | CT ---
EXAMINATION TYPE: CT chest wo con DATE OF EXAM: 11/21/2021 COMPARISON: None HISTORY: Lung Nodule CT DLP: [address] of the chest was performed with lung and mediastinal window settings submitted. The la ck of contrast limits evaluation of the vascular, mediastinal and parenchymal structures including th e upper abdomen. LUNGS: The lungs are clear and free of infiltrate. No atelectasis. No pulmonary nodule or mass is de tected. Calcified granulomas right upper lobe measuring up to 6 mm. No pleural effusion. No CT evide nce of interstitial lung disease. MEDIASTINUM/ANGEL: Calcified hilar mediastinal lymph nodes. Thoracic aorta is of normal caliber with l imited evaluation given lack of contrast. The heart is not enlarged. No evidence for mediastinal ma ss. No lymph nodes greater than 1cm. UPPER ABDOMEN: No significant abnormality is seen. OTHER: No significant other abnormality. IMPRESSION: 1. There is evidence of remote granulomatous disease. No concerning pulmonary nodule or mass is appr eciated.
== END | disposition home or self-care (01) ==
LOC: RADCTMAIN 11:44
PROVIDERS: ATTEND Family Medicine
DX: R91.1 Solitary pulmonary nodule (principal)
CPT/HCPCS: 71250

== ENCOUNTER → 2022-01-11 | Outpatient (CLI) | payer MEDICARE ==
--- NOTE | 2022-01-12 11:04 | CA ---
Transthoracic Echo Report Name: Belen Kwok Age: 71 Gender: F : 1950 Exam Date: 01/11/2022 13:32 Exam Location: [facility] Ht (in): 63 Wt (lb): 271 Ordering Physician: Cinthia Valverde MD Attending/Referring Phys: Logistics Analyst Marianne Joyce RDCS Procedure CPT: Indications: R94.31 ABNORMAL EKG Cardiac Hx: Technical Quality: Fair Contrast 1: Total Dose (mL): Contrast 2: Total Dose (mL): MEASUREMENTS (Male / Female) Normal Values 2D ECHO LV Diastolic Diameter PLAX 4.4 cm 4.2 - 5.9 / 3.9 - 5.3 cm LV Systolic Diameter PLAX 3.1 cm IVS Diastolic Thickness 1.1 cm 0.6 - 1.0 / 0.6 - 0.9 cm LVPW Diastolic Thickness 1.2 cm 0.6 - 1.0 / 0.6 - 0.9 cm LV Relative Wall Thickness 0.5 RV Internal Dim ED PLAX 3.3 cm LA Systolic Diameter LX 3.6 cm 3.0 - 4.0 / 2.7 - 3.8 cm LA Volume 62.1 cm??? 18 - 58 / 22 - 52 cm??? M-MODE Aortic Root Diameter MM 2.8 cm MV E Point Septal Separation 1.0 cm AV Cusp Separation MM 1.9 cm DOPPLER AV Peak Velocity 140.5 cm/s AV Peak Gradient 7.9 mmHg MV Area PHT 3.7 cm??? Mitral E Point Velocity 64.3 cm/s Mitral A Point Velocity 96.1 cm/s Mitral E to A Ratio 0.7 MV Deceleration Time 202.8 ms MV E' Velocity 7.3 cm/s Mitral E to MV E' Ratio 8.8 FINDINGS Left Ventricle Left ventricular ejection fraction is estimated at 55-60 %. Left ventricular cavity size normal. Mildly increased septal wall thickness. Mildly increased posterior wall thickness. Right Ventricle Mild right ventricular dilatation. Unable to estimate the right ventricular systolic pressure no TR jet Right Atrium Normal right atrial size. Left Atrium Mildly increased left atrial volume. Mildly increased left atrial area. No evidence for an atrial septal defect. Mitral Valve Structurally normal mitral valve. No mitral stenosis, regurgitation or prolapse. Aortic Valve Trileaflet aortic valve. No aortic valve stenosis or regurgitation. Tricuspid Valve Structurally normal tricuspid valve. Pulmonic Valve Structurally normal pulmonic valve. Pericardium Normal pericardium. No pericardial effusion. Aorta Normal size aortic root and proximal ascending aorta. CONCLUSIONS Normal left ventricular ejection fraction 55-60% Mild increased left ventricular wall thickness Mildly increased left atrial size No pericardial effusion Previewed by: Dr. David Nixon DO (Electronically Signed) Final Date: 12 January 2022 11:03
== END | disposition home or self-care (01) ==
LOC: RADECHMAIN 13:22
PROVIDERS: ATTEND Family Medicine
DX: R94.31 Abnormal electrocardiogram [ECG] [EKG] (principal)
CPT/HCPCS: 93306

== ENCOUNTER → 2023-07-05 | Outpatient (CLI) | payer MEDICARE ==
--- NOTE | 2023-07-09 12:11 | MM ---
Reason for Exam: Follow-up at short interval from prior study. Last mammogram was performed 2 year(s) and 6 month(s) ago. Patient History: Menarche at age 10. Patient has no children. Left ovary removed at age 55. Right ovary removed at age 55. Hysterectomy at age 55. Postmenopausal. Endometrial cancer, age 55. 10/24/2021, Excisional Biopsy on the Left side. Sister had breast cancer, age 67. Risk Values: Ketty 5 year model risk: 4.5%. NCI Lifetime model risk: 10.1%. Prior Study Comparison: 04/14/1999 Bilateral Screening Mammogram, [facility]. 03/12/2002 Bilateral Screening Mammogram, [facility]. 01/05/2021 Bilateral Diagnostic Mammogram, [facility]. 05/25/2022 Left MG 3D diag mammo w/cad LT, [facility]. Tissue Density: The breasts are heterogeneously dense, which may obscure small masses. Findings: Analyzed By CAD. No evidence for mass or distortion. Benign calcifications noted bilaterally. Overall Assessment: Benign, BI-RAD 2 Management: Screening Mammogram of both breasts in 1 year. . Results were given to the patient verbally at the time of exam. Patient should continue monthly self-breast exams. A clinical breast exam by your physician is recommended on an annual basis. This exam should not preclude additional follow-up of suspicious palpable abnormalities. Note on Ktety scores and lifetime risk: 1. A Ketty score greater than 3% is considered moderate risk. If this is the case, consider specialist referral to assess eligibility for a risk reducing agent. 2. If overall lifetime risk for the development of breast cancer is 20% or higher, the patient may qualify for future screening with alternating mammogram and breast MRI. Electronically signed and approved by: Memo Penn M.D. Radiologis
== END | disposition home or self-care (01) ==
LOC: RADMAMWWP 13:12
PROVIDERS: ATTEND Family Medicine
DX: R92.333 Mammographic heterogeneous density, bilateral breasts (principal); Z80.3 Family history of malignant neoplasm of breast; Z78.0 Asymptomatic menopausal state
CPT/HCPCS: 77066; G0279; 77062

== ENCOUNTER → 2023-07-05 | Outpatient (CLI) | payer MEDICARE ==
--- NOTE | 2023-07-06 10:01 | BD ---
EXAMINATION TYPE: Axial Bone Density DATE OF EXAM: 07/05/2023 CLINICAL HISTORY: 73 years old Female. ICD-10 CODE: N95.1 MENOPAUSAL AND FEMALE CLIMACTERIC STATES Height: 61 Weight: 270 FRAX RISK QUESTIONS: Alcohol (3 or more units per day): no Family History (Parent hip fracture): no Glucocorticoids (More than 3mos): no (Ex: prednisone, prednisolone, methylprednisolone, dexamethasone, and hydrocortisone). History of Fracture in Adulthood: no Secondary Osteoporosis: 1. Type 1 Diabetes: no 2. Hyperthyroidism: no 3. Menopause before 45: no 4. Malnutrition: no 5. Chronic liver disease: no Rheumatoid Arthritis: no Current Tobacco Use: no RISK FACTORS HISTORY OF: Surgery to Spine/Hip(right/left)/Wrist (right/left): no MEDICATIONS: Thyroid Medications: levothyroxine How Lon years EXAM MEASUREMENTS: Bone mineral densitometry was performed using the [employer] System. Bone mineral density as measured about the Lumbar spine is: ----- L1-L4(G/cm2): 1.571 T Score Values are as follows: ----- L1: 2.4 ----- L2: 2.7 ----- L3: 3.7 ----- L4: 3.8 ----- L1-L4: 3.3 Z Score Values are as follows: ----- L1: 3.0 ----- L2: 3.2 ----- L3: 4.3 ----- L4: 4.4 ----- L1-L4: 3.8 Bone mineral density has: increased 3.0 % since study of: 01.05.2021 Bone mineral density about the R hip (g/cm2): 0.996 Bone mineral density about the L hip (g/cm2): 1.019 T Score values are as follows: -----R Neck: -0.7 -----L Neck: -0.5 -----R Total: -0.1 -----L Total: 0.1 Z Score values are as follows: -----R Neck: 0.4 -----L Neck: 0.6 -----R Total: 0.8 -----L Total: 0.9 Bone mineral density has: decreased -5.0 % since study of: 01.05.2021 FRAX%s: The graph provided illustrates a 7.1% chance for a major osteoporotic fx and a 0.7% chance fo r the hips probability for fx in 10 years time. IMPRESSION: Normal (Values between +1 and -1 indicate normal bone mass). Consider repeating this study in 5 year s or sooner if there is some new clinical indication. NOTE: T-SCORE=SD OF THE YOUNG ADULT MEAN.
== END | disposition home or self-care (01) ==
LOC: RADBDWWP 13:18
PROVIDERS: ATTEND Family Medicine
DX: M85.89 Other specified disorders of bone density and structure, multiple sites (principal); N95.1 Menopausal and female climacteric states
CPT/HCPCS: 77080

== ENCOUNTER → 2024-04-25 | Outpatient (CLI) | payer MEDICARE ==
[2024-04-25 10:37] LABS: Appearance,Urine Cloudy (Clear); Bacteria,Urine Occasional /hpf; Bilirubin,Urine Negative (Negative); Blood,Urine Trace (Negative); Color,Urine Light Yellow; Glucose,Urine (UA) Negative (Negative); Ketones,Urine Negative (Negative); Leukocyte Esterase,Urine Large (Negative); Mucus,Urine Rare /hpf; Nitrite,Urine Negative (Negative); PH, Urine 6.5 (5.0-8.0); Protein,Urine Negative (Negative); RBC,Urine 3 /hpf (0-5); Specific Gravity,Urine 1.012 (1.001-1.035); Squamous Epithelial Cell,Urine 6 /hpf (0-4); Urobilinogen,Urine <2.0 mg/dL (<2.0); WBC,Urine 153 /hpf (0-5)
[2024-04-25 14:56] LABS: Basophils # (A) 0.08 X 10*3/uL (0.00-0.10); Basophils % (A) 0.9 %; Eosinophils # (A) 0.33 X 10*3/uL (0.04-0.35); Eosinophils % (A) 3.6 %; HGB 14.2 g/dL (12.0-15.0); Lymphocytes # (A) 1.89 X 10*3/uL (0.90-5.00); Lymphocytes % (A) 20.8 %; MCH 29.4 pg (27.0-32.0); MCHC 31.6 g/dL (32.0-37.0); MCV 93.2 FL (80.0-97.0); Mean Platelet Volume 11.8 FL (9.5-12.2); Monocytes # (A) 0.83 X 10*3/uL (0.20-1.00); Monocytes % (A) 9.1 %; NRBC Per 100 WBC 0 X 10*3/uL (0.00-0.01); Neutrophils # (A) 5.93 X 10*3/uL (1.80-7.70); Neutrophils % (A) 65.3 %; Platelet Count 299 X 10*3/uL (140-440); RBC 4.83 X 10*6/uL (4.10-5.20); RDW 15.5 % (11.5-14.5); WBC 9.09 X 10*3/uL (4.50-10.00)
[2024-04-25 15:41] LABS: ALT 22 U/L (8-44); AST 26 U/L (13-35); Albumin 3.7 g/dL (3.8-4.9); Albumin/Globulin Ratio 0.97 Ratio (1.60-3.17); Alkaline Phosphatase 136 U/L (41-126); BUN/Creat Ratio 18.07 Ratio (12.00-20.00); Blood Urea Nitrogen 25.3 mg/dL (9.0-27.0); Carbon Dioxide 27.1 mmol/L (21.6-31.8); Chloride 101 mmol/L (96-109); Chol/HDL Ratio 2.81 Ratio; Creatine Kinase 178 U/L (26-186); Globulin 3.8 g/dL (1.6-3.3); Glucose 159 mg/dL (70-110); LDL Cholesterol,Calculated 52.8 mg/dL (0.0-131.0); Potassium 4.5 mmol/L (3.5-5.5); Sodium 141 mmol/L (135-145); T4, Free (Free Thyroxine) 1.69 ng/dL (0.80-1.80); Total Bilirubin 0.6 mg/dL (0.3-1.2); Total Protein 7.5 g/dL (6.2-8.2); Uric Acid 4.1 mg/dL (2.9-7.7); VLDL Calculation 18.14 mg/dL (5.00-40.00)
[2024-04-25 20:44] LABS: Urine Creatinine 92.7 mg/dL (28.0-217.0)
== END | disposition home or self-care (01) ==
LOC: LABWHC1 09:09
PROVIDERS: ATTEND Family Medicine
DX: E11.40 Type 2 diabetes mellitus with diabetic neuropathy, unspecified (principal); E11.65 Type 2 diabetes mellitus with hyperglycemia; M10.9 Gout, unspecified; M89.9 Disorder of bone, unspecified
CPT/HCPCS: 36415; 80053; 80061; 81001; 82043; 82306; 82550; 82570; 82607; 83036; 84439; 84443; 84550; 85025

== ENCOUNTER → 2024-09-02 | Outpatient (CLI) | payer MEDICARE ==
[2024-09-02 15:08] LABS: Basophils # (A) 0.11 X 10*3/uL (0.00-0.10); Basophils % (A) 1.1 %; Eosinophils # (A) 0.38 X 10*3/uL (0.04-0.35); Eosinophils % (A) 3.8 %; HCT 41.7 % (37.2-46.3); HGB 13.1 g/dL (12.0-15.0); Lymphocytes # (A) 2.48 X 10*3/uL (0.90-5.00); Lymphocytes % (A) 25.1 %; MCH 29.7 pg (27.0-32.0); MCHC 31.4 g/dL (32.0-37.0); MCV 94.6 FL (80.0-97.0); Monocytes # (A) 0.89 X 10*3/uL (0.20-1.00); NRBC Per 100 WBC 0 X 10*3/uL (0.00-0.01); Neutrophils # (A) 5.99 X 10*3/uL (1.80-7.70); Neutrophils % (A) 60.6 %; Platelet Count 270 X 10*3/uL (140-440); RBC 4.41 X 10*6/uL (4.10-5.20); RDW 15.6 % (11.5-14.5); WBC 9.89 X 10*3/uL (4.50-10.00)
[2024-09-02 15:30] LABS: ALT 29 U/L (8-44); AST 30 U/L (13-35); Albumin 3.5 g/dL (3.8-4.9); Albumin/Globulin Ratio 1.13 Ratio (1.60-3.17); Alkaline Phosphatase 127 U/L (41-126); BUN/Creat Ratio 19.67 Ratio (12.00-20.00); Blood Urea Nitrogen 29.5 mg/dL (9.0-27.0); Calcium 8.6 mg/dL (8.7-10.3); Chloride 104 mmol/L (96-109); Globulin 3.1 g/dL (1.6-3.3); Glucose 161 mg/dL (70-110); LDL Cholesterol,Calculated 41.3 mg/dL (0.0-131.0); Phosphorus 3.7 mg/dL (2.4-5.1); Potassium 4.4 mmol/L (3.5-5.5); Sodium 140 mmol/L (135-145); Total Bilirubin 0.4 mg/dL (0.3-1.2); Total Protein 6.6 g/dL (6.2-8.2)
[2024-09-02 15:31] LABS: T4, Free (Free Thyroxine) 1.51 ng/dL (0.80-1.80)
== END | disposition home or self-care (01) ==
LOC: LABWHC1 07:40
PROVIDERS: ATTEND Family Medicine
DX: E11.65 Type 2 diabetes mellitus with hyperglycemia (principal); E11.40 Type 2 diabetes mellitus with diabetic neuropathy, unspecified; N18.31 Chronic kidney disease, stage 3a; K63.5 Polyp of colon
CPT/HCPCS: 36415; 80053; 80061; 83036; 83970; 84100; 84439; 84443; 85025